=== PATIENT | male | born 1955 | race Caucasian/White ===

== ENCOUNTER 2019-08-15 19:25 | Inpatient (IN) | payer MEDICAID ==
[~2019-08-15] VITALS: Ht 170.2 cm; Wt 86.2 kg
[~2019-08-15 19:25] MED LIST: ALBU8HFA4 IH; ASPI-728 PO; DIVA250T60 PO; GABA-533 PO; GLYB5 PO; INSLAN SQ; LOSA-88 PO; METF-960 PO; OXCA300T28 PO; Quetiapine Fumarate PO; SIMV-261 PO
[2019-08-15] MEDS ORDERED: LORazepam 2 MG TABLET PO PRN (21:15)
[2019-08-15] MEDS ORDERED: HALOPERIDOL 5 MG TABLET PO PRN (21:15)
[2019-08-15] MEDS ORDERED: INFLUENZA VIRUS VACCINE QVS 2019-20 (3YR+)/PF 60 MCG/0.5 ML SYRINGE IM ONE (22:00)
[2019-08-16 00:18] VITALS: BP 135/67
[2019-08-16] MEDS: ZOLPIDEM TARTRATE 10 MG TABLET PO PRN (00:32)
[2019-08-16 06:19] LABS: GLUCOMETER DEV NAME(LOC) BV2S.; GLUCOSE,POINT OF CARE 405 MG/DL (70-110)
[2019-08-16] MEDS ORDERED: INSULIN LISPRO 100 UNITS/ML SQ ONE ×3 (07:30→18:00)
[2019-08-16] MEDS ORDERED: GLUCAGON,HUMAN RECOMBINANT 1 MG VIAL IM PRN (07:30)
[2019-08-16 08:38] LABS: BASOPHILS % (AUTO) 0.8 % (0.0-2.0); HEMOGLOBIN 13.8 g/dL (13.5-17.5); LYMPHOCYTES % (AUTO) 38.4 % (22.0-44.0); MEAN CORPUSCULAR HEMOGLOBIN 28.9 pg (26.0-34.0); MEAN CORPUSCULAR HGB CONC 33.7 G/dL (31.0-37.0); MEAN CORPUSCULAR VOLUME 86 fL (80-100); MONOCYTES # (AUTO) 0.4 K/uL (0.1-1.0); MONOCYTES % (AUTO) 8.4 % (2.0-9.0); NEUTROPHILS # (AUTO) 2.6 K/uL (1.8-7.7); NEUTROPHILS % (AUTO) 49.4 % (40.0-70.0); PLATELET COUNT (AUTO) 142 K/uL (150-450); RED BLOOD CELL COUNT(AUTO) 4.79 MIL/uL (4.50-5.90); RED CELL DISTRIBUTION WIDTH 13.1 % (11.5-14.5)
[2019-08-16 08:52] VITALS: BP 136/70
[2019-08-16] MEDS ORDERED: INSULIN GLARGINE,HUM.REC.ANLOG 100 UNITS/ML SQ SCH ×2 (09:00→17:00)
[2019-08-16 09:10] LABS: HEMOGLOBIN A1C 12.9 % (4.5-6.2)
[2019-08-16 09:27] LABS: ALANINE AMINOTRANSFERASE 26 U/L (12-78); ALBUMIN 2.9 g/dL (3.4-5.0); ALKALINE PHOSPHATASE 61 U/L (46-116); ANION GAP 4 mmol/L (8-16); ASPARTATE AMINOTRANSFERASE 10 U/L (15-37); BILIRUBIN,TOTAL 0.2 mg/dL (0.1-1.0); CALCIUM, TOTAL 8.7 mg/dL (8.8-10.5); CARBON DIOXIDE 31 mmol/L (22-29); CHLORIDE 101 mmol/L (98-107); CHOL/HDL RATIO 4.4 (4.2-7.3); CHOLESTEROL 111 mg/dL (131-200); CREATININE 0.99 mg/dL (0.60-1.30); FREE T4 (FREE THYROXINE) 0.95 ng/dL (0.76-1.46); GLOMERULAR FILTR. RATE CALC > 60 mL/min (>60); HDL CHOLESTEROL 25 mg/dL (40-60); LDL CHOL (CALC.) 37 mg/dL (0-130); POTASSIUM 4.2 mmol/L (3.5-5.1); SODIUM SERUM 136 mmol/L (136-145); THYROID STIMULATING HORMONE 2.47 uIU/mL (0.36-3.74); TOTAL PROTEIN, SERUM 5.7 g/dL (6.4-8.2); TRIGLYCERIDES 246 mg/dL (15-150); UREA NITROGEN, BLOOD 28 mg/dL (7-18)
[2019-08-16 09:32] LABS: GLUCOSE,RANDOM 402 mg/dL (70-110)
[2019-08-16 11:11] LABS: GLUCOMETER DEV NAME(LOC) BV2S.; GLUCOSE,POINT OF CARE 425 MG/DL (70-110)
[2019-08-16] MEDS ORDERED: INSULIN GLARGINE,HUM.REC.ANLOG 100 UNITS/ML SQ ONE (12:30)
[2019-08-16] MEDS: ESCITALOPRAM OXALATE 10 MG TABLET PO SCH (13:26)
[2019-08-16] MEDS ORDERED: MAG HYDROX/AL HYDROX/SIMETH ES 30 ML SUSPENSION UDCUP PO PRN (15:15)
[2019-08-16] MEDS ORDERED: GuaiFENesin/D-METHORPHAN [SUGAR-FREE] 200-20MG/10 ML SYRUP UDCUP PO PRN (15:15)
[2019-08-16] MEDS ORDERED: ONDANSETRON HCL 4 MG TABLET PO PRN (15:15)
[2019-08-16] MEDS ORDERED: LOPERAMIDE HCL 2 MG CAPSULE PO PRN (15:15)
[2019-08-16] MEDS ORDERED: IBUPROFEN 400 MG TABLET PO PRN (15:15)
[2019-08-16] MEDS ORDERED: CloNIDine HCL 0.1 MG TABLET PO PRN (15:15)
[2019-08-16] MEDS ORDERED: ALBUTEROL SULFATE HFA 90 MCG/PUFF 8 GM INHALER IH PRN (15:15)
[2019-08-16] MEDS ORDERED: MAGNESIUM HYDROXIDE SUSPENSION 30 ML UDCUP PO PRN (15:15)
[2019-08-16] MEDS ORDERED: DOCUSATE SODIUM 100 MG CAPSULE PO PRN (15:15)
[2019-08-16] MEDS ORDERED: PETROLATUM,WHITE 28 GM JELLY TP PRN (15:15)
[2019-08-16] MEDS ORDERED: ACETAMINOPHEN 325 MG TABLET PO PRN (15:15)
[2019-08-16] MEDS ORDERED: NICOTINE 14 MG/24 HOUR PATCH TD PRN (15:15)
[2019-08-16 16:22] VITALS: BP 141/72
[2019-08-16] MEDS: GABAPENTIN 400 MG CAPSULE PO SCH ×2 (16:58→21:14)
[2019-08-16] MEDS: DIVALPROEX SODIUM 250 MG DR TABLET PO SCH (16:59)
[2019-08-16] MEDS ORDERED: DIVALPROEX SODIUM 250 MG ER TABLET PO SCH (17:00)
[2019-08-16] MEDS ORDERED: MetFORMIN HCL 500 MG TABLET PO SCH (17:00)
[2019-08-16] MEDS: MetFORMIN HCL 500 MG TABLET PO SCH (17:00)
[2019-08-16] MEDS: INSULIN GLARGINE,HUM.REC.ANLOG 100 UNITS/ML SQ SCH (18:05)
[2019-08-16 20:58] LABS: GLUCOMETER DEV NAME(LOC) BV2S.; GLUCOSE,POINT OF CARE 348 MG/DL (70-110)
[2019-08-16 20:58] LABS: GLUCOMETER DEV NAME(LOC) BV2S.; GLUCOSE,POINT OF CARE 423 MG/DL (70-110)
[2019-08-16] MEDS: OXcarbazepine 300 MG TABLET PO SCH (21:13)
[2019-08-16] MEDS: GlyBURIDE 5 MG TABLET PO SCH (22:10)
[2019-08-16] MEDS: SIMVASTATIN 40 MG TABLET PO SCH (22:36)
[2019-08-16] MEDS: INSULIN LISPRO 100 UNITS/ML SQ PRN (22:37)
[2019-08-17 00:26] VITALS: BP 120/62
[2019-08-17 06:28] LABS: GLUCOMETER DEV NAME(LOC) BV2S.; GLUCOSE,POINT OF CARE 224 MG/DL (70-110)
[2019-08-17] MEDS: INSULIN LISPRO 100 UNITS/ML SQ PRN ×4 (06:46→20:50)
[2019-08-17] MEDS: GlyBURIDE 5 MG TABLET PO SCH ×2 (06:59→16:54)
[2019-08-17] MEDS: MetFORMIN HCL 500 MG TABLET PO SCH ×3 (07:00→17:00)
[2019-08-17 08:35] VITALS: BP 142/67
[2019-08-17] MEDS: LOSARTAN POTASSIUM 50 MG TABLET PO SCH (09:39)
[2019-08-17] MEDS: DIVALPROEX SODIUM 250 MG DR TABLET PO SCH ×2 (09:39→16:40)
[2019-08-17] MEDS: ASPIRIN 81 MG CHEWABLE TABLET PO SCH (09:39)
[2019-08-17] MEDS: ESCITALOPRAM OXALATE 10 MG TABLET PO SCH (09:39)
[2019-08-17] MEDS: GABAPENTIN 400 MG CAPSULE PO SCH ×4 (09:39→20:45)
[2019-08-17] MEDS: INSULIN GLARGINE,HUM.REC.ANLOG 100 UNITS/ML SQ SCH ×2 (09:47→16:48)
[2019-08-17 09:58] LABS: GLUCOMETER DEV NAME(LOC) BV2S.; GLUCOSE,POINT OF CARE 366 MG/DL (70-110)
[2019-08-17 11:38] LABS: GLUCOMETER DEV NAME(LOC) BV2S.; GLUCOSE,POINT OF CARE 361 MG/DL (70-110)
[2019-08-17 16:03] LABS: GLUCOMETER DEV NAME(LOC) BV2S.; GLUCOSE,POINT OF CARE 312 MG/DL (70-110)
[2019-08-17 16:17] VITALS: BP 131/71
[2019-08-17] MEDS: SIMVASTATIN 40 MG TABLET PO SCH (20:46)
[2019-08-17] MEDS: OXcarbazepine 300 MG TABLET PO SCH (20:46)
[2019-08-17 21:02] LABS: GLUCOMETER DEV NAME(LOC) BV2S.; GLUCOSE,POINT OF CARE 331 MG/DL (70-110)
[2019-08-18 00:26] VITALS: BP 136/81
[2019-08-18] MEDS: ZOLPIDEM TARTRATE 10 MG TABLET PO PRN (00:26)
[2019-08-18 01:16] VITALS: BP 138/83
[2019-08-18 06:18] LABS: GLUCOMETER DEV NAME(LOC) BV2S.; GLUCOSE,POINT OF CARE 236 MG/DL (70-110)
[2019-08-18] MEDS: GlyBURIDE 5 MG TABLET PO SCH ×2 (06:27→16:36)
[2019-08-18] MEDS: INSULIN LISPRO 100 UNITS/ML SQ PRN ×4 (06:32→21:29)
[2019-08-18 09:34] VITALS: BP 106/66
[2019-08-18] MEDS: DIVALPROEX SODIUM 250 MG DR TABLET PO SCH ×2 (10:11→16:36)
[2019-08-18] MEDS: LOSARTAN POTASSIUM 50 MG TABLET PO SCH (10:11)
[2019-08-18] MEDS: ASPIRIN 81 MG CHEWABLE TABLET PO SCH (10:12)
[2019-08-18] MEDS: ESCITALOPRAM OXALATE 10 MG TABLET PO SCH (10:12)
[2019-08-18] MEDS: GABAPENTIN 400 MG CAPSULE PO SCH ×4 (10:13→20:33)
[2019-08-18] MEDS: INSULIN GLARGINE,HUM.REC.ANLOG 100 UNITS/ML SQ SCH ×2 (10:28→17:32)
[2019-08-18 12:29] LABS: GLUCOMETER DEV NAME(LOC) BV2S.; GLUCOSE,POINT OF CARE 319 MG/DL (70-110)
[2019-08-18] MEDS: MetFORMIN HCL 500 MG TABLET PO SCH (16:36)
[2019-08-18 16:43] VITALS: BP 125/70
[2019-08-18 17:11] LABS: GLUCOMETER DEV NAME(LOC) BV2S.; GLUCOSE,POINT OF CARE 369 MG/DL (70-110)
[2019-08-18] MEDS: SIMVASTATIN 40 MG TABLET PO SCH (20:33)
[2019-08-18] MEDS: OXcarbazepine 300 MG TABLET PO SCH (20:33)
[2019-08-18 21:10] LABS: GLUCOMETER DEV NAME(LOC) BV2S.; GLUCOSE,POINT OF CARE 350 MG/DL (70-110)
[2019-08-19 01:28] VITALS: BP 122/70
[2019-08-19 06:54] LABS: GLUCOMETER DEV NAME(LOC) BV2S.; GLUCOSE,POINT OF CARE 153 MG/DL (70-110)
[2019-08-19] MEDS: INSULIN LISPRO 100 UNITS/ML SQ PRN ×4 (07:01→21:02)
[2019-08-19] MEDS: MetFORMIN HCL 500 MG TABLET PO SCH ×2 (07:02→16:24)
[2019-08-19] MEDS: GlyBURIDE 5 MG TABLET PO SCH ×2 (07:02→16:25)
[2019-08-19] MEDS: ESCITALOPRAM OXALATE 10 MG TABLET PO SCH (08:19)
[2019-08-19] MEDS: GABAPENTIN 400 MG CAPSULE PO SCH ×4 (08:19→20:21)
[2019-08-19] MEDS: ASPIRIN 81 MG CHEWABLE TABLET PO SCH (08:19)
[2019-08-19] MEDS: LOSARTAN POTASSIUM 50 MG TABLET PO SCH (08:20)
[2019-08-19] MEDS: DIVALPROEX SODIUM 250 MG DR TABLET PO SCH ×2 (08:20→16:25)
[2019-08-19] MEDS: INSULIN GLARGINE,HUM.REC.ANLOG 100 UNITS/ML SQ SCH ×2 (09:10→17:09)
[2019-08-19 09:23] VITALS: BP 140/79
[2019-08-19 11:13] LABS: GLUCOMETER DEV NAME(LOC) BV2S.; GLUCOSE,POINT OF CARE 314 MG/DL (70-110)
[2019-08-19 16:35] VITALS: BP 127/74
[2019-08-19 17:07] LABS: GLUCOMETER DEV NAME(LOC) BV2S.; GLUCOSE,POINT OF CARE 251 MG/DL (70-110)
[2019-08-19] MEDS: OXcarbazepine 300 MG TABLET PO SCH (20:21)
[2019-08-19] MEDS: SIMVASTATIN 40 MG TABLET PO SCH (20:22)
[2019-08-19] MEDS: ZOLPIDEM TARTRATE 10 MG TABLET PO PRN (20:38)
[2019-08-19 21:08] LABS: GLUCOMETER DEV NAME(LOC) BV2S.; GLUCOSE,POINT OF CARE 337 MG/DL (70-110)
[2019-08-20] MEDS: INSULIN LISPRO 100 UNITS/ML SQ PRN ×4 (07:07→21:42)
[2019-08-20] MEDS: GlyBURIDE 5 MG TABLET PO SCH ×2 (07:08→16:13)
[2019-08-20 07:30] LABS: GLUCOMETER DEV NAME(LOC) BV2S.; GLUCOSE,POINT OF CARE 220 MG/DL (70-110)
[2019-08-20] MEDS: ESCITALOPRAM OXALATE 10 MG TABLET PO SCH (08:23)
[2019-08-20] MEDS: LOSARTAN POTASSIUM 50 MG TABLET PO SCH (08:24)
[2019-08-20] MEDS: GABAPENTIN 400 MG CAPSULE PO SCH ×4 (08:24→20:25)
[2019-08-20] MEDS: DIVALPROEX SODIUM 250 MG DR TABLET PO SCH (08:24)
[2019-08-20] MEDS: ASPIRIN 81 MG CHEWABLE TABLET PO SCH (08:25)
[2019-08-20] MEDS: INSULIN GLARGINE,HUM.REC.ANLOG 100 UNITS/ML SQ SCH ×2 (08:30→18:39)
[2019-08-20 09:17] VITALS: BP 124/74
[2019-08-20 11:30] LABS: GLUCOMETER DEV NAME(LOC) BV2S.; GLUCOSE,POINT OF CARE 258 MG/DL (70-110)
[2019-08-20] MEDS: DIVALPROEX SODIUM 500 MG DR TABLET PO SCH (16:13)
[2019-08-20 16:27] VITALS: BP 118/85
[2019-08-20 17:17] LABS: GLUCOMETER DEV NAME(LOC) BV2S.; GLUCOSE,POINT OF CARE 277 MG/DL (70-110)
[2019-08-20] MEDS: OXcarbazepine 300 MG TABLET PO SCH (20:25)
[2019-08-20] MEDS: SIMVASTATIN 40 MG TABLET PO SCH (20:27)
[2019-08-20] MEDS: ZOLPIDEM TARTRATE 10 MG TABLET PO PRN (21:12)
[2019-08-20 21:26] LABS: GLUCOMETER DEV NAME(LOC) BV2S.; GLUCOSE,POINT OF CARE 300 MG/DL (70-110)
[2019-08-21 02:25] VITALS: BP 140/97
[2019-08-21 06:32] LABS: GLUCOMETER DEV NAME(LOC) BV2S.; GLUCOSE,POINT OF CARE 238 MG/DL (70-110)
[2019-08-21] MEDS: GlyBURIDE 5 MG TABLET PO SCH (07:01)
[2019-08-21] MEDS: INSULIN LISPRO 100 UNITS/ML SQ PRN ×2 (07:02→10:56)
[2019-08-21 08:52] VITALS: BP 123/89
[2019-08-21] MEDS: ESCITALOPRAM OXALATE 10 MG TABLET PO SCH (09:03)
[2019-08-21] MEDS: GABAPENTIN 400 MG CAPSULE PO SCH ×2 (09:03→12:22)
[2019-08-21] MEDS: LOSARTAN POTASSIUM 50 MG TABLET PO SCH (09:04)
[2019-08-21] MEDS: ASPIRIN 81 MG CHEWABLE TABLET PO SCH (09:04)
[2019-08-21] MEDS: DIVALPROEX SODIUM 500 MG DR TABLET PO SCH (09:04)
[2019-08-21] MEDS: INSULIN GLARGINE,HUM.REC.ANLOG 100 UNITS/ML SQ SCH (09:06)
[2019-08-21 09:14] LABS: GLUCOMETER DEV NAME(LOC) BV2S.; GLUCOSE,POINT OF CARE 399 MG/DL (70-110)
[2019-08-21 11:03] LABS: GLUCOMETER DEV NAME(LOC) BV2S.; GLUCOSE,POINT OF CARE 285 MG/DL (70-110)
[2019-08-21] MEDS ORDERED: DIVA125T32 PO (11:04)
[2019-08-21] MEDS ORDERED: DIVA-76 PO (11:08)
[2019-08-21] MEDS ORDERED: INSLAN SQ (11:10)
[2019-08-21] MEDS ORDERED: ESCI20TA PO (11:12)
== END 2019-08-21 13:35 | disposition home or self-care (01) | DRG 754 ==
LOC: B2S 21:08
PROVIDERS: ADMIT Psychiatry & Neurology Psychiatry; ATTEND Psychiatry & Neurology Psychiatry
DX: F32.9 Major depressive disorder, single episode, unspecified (principal); R45.850 Homicidal ideations; R45.851 Suicidal ideations; E11.9 Type 2 diabetes mellitus without complications; E78.5 Hyperlipidemia, unspecified; F10.10 Alcohol abuse, uncomplicated; F41.9 Anxiety disorder, unspecified; G40.909 Epilepsy, unspecified, not intractable, without status epilepticus; I10 Essential (primary) hypertension; J44.9 Chronic obstructive pulmonary disease, unspecified; G47.33 Obstructive sleep apnea (adult) (pediatric); G89.29 Other chronic pain; Z59.0 Homelessness; Z91.14 Patient's other noncompliance with medication regimen
CPT/HCPCS: 83036; 84439; 84443; 90686; J1815

== ENCOUNTER 2020-01-01 07:27 | Inpatient (IN) | payer MEDICAID ==
[~2020-01-01] VITALS: Ht 167.6 cm; Wt 84.5 kg
[~2020-01-01 07:27] MED LIST changes: -ALBU8HFA4 IH; +DIVA-111 PO; -DIVA250T60 PO; +ESCI20TA87 PO; +GABA-1201 PO; -GABA-533 PO; -LOSA-88 PO; +LOSA50TA37 PO; -METF-960 PO; -Quetiapine Fumarate PO
[2020-01-01 13:19] VITALS: BP 111/90
[2020-01-01] MEDS ORDERED: DEXTROSE 50%-WATER 25 GM/50 ML SYRINGE IVP PRN (13:30)
[2020-01-01] MEDS ORDERED: HALOPERIDOL 5 MG TABLET PO PRN (13:30)
[2020-01-01] MEDS ORDERED: LOPERAMIDE HCL 2 MG CAPSULE PO PRN (14:00)
[2020-01-01] MEDS ORDERED: CloNIDine HCL 0.1 MG TABLET PO PRN (14:00)
[2020-01-01] MEDS ORDERED: MAGNESIUM HYDROXIDE SUSPENSION 30 ML UDCUP PO PRN (14:00)
[2020-01-01] MEDS ORDERED: MAG HYDROX/AL HYDROX/SIMETH ES 30 ML SUSPENSION UDCUP PO PRN (14:00)
[2020-01-01] MEDS ORDERED: DOCUSATE SODIUM 100 MG CAPSULE PO PRN (14:00)
[2020-01-01] MEDS ORDERED: ALBUTEROL SULFATE HFA 90 MCG/PUFF 8 GM INHALER IH PRN (14:00)
[2020-01-01] MEDS ORDERED: ONDANSETRON HCL 4 MG TABLET PO PRN (14:00)
[2020-01-01] MEDS ORDERED: PETROLATUM,WHITE 28 GM JELLY TP PRN (14:00)
[2020-01-01] MEDS ORDERED: ACETAMINOPHEN 325 MG TABLET PO PRN (14:00)
[2020-01-01] MEDS ORDERED: NICOTINE 14 MG/24 HOUR PATCH TD PRN (14:00)
[2020-01-01] MEDS ORDERED: GuaiFENesin/D-METHORPHAN [SUGAR-FREE] 200-20MG/10 ML SYRUP UDCUP PO PRN (14:00)
[2020-01-01 16:20] VITALS: BP 138/68
[2020-01-01] MEDS: DIVALPROEX SODIUM 500 MG DR TABLET PO SCH (16:39)
[2020-01-01] MEDS: GABAPENTIN 400 MG CAPSULE PO SCH ×2 (16:39→20:10)
[2020-01-01 16:51] LABS: APPEARANCE,URINE CLEAR (CLEAR); GLUCOSE, URINE (UA) >=1000 mg/dL (NEGATIVE); KETONES,URINE 40 mg/dL (NEGATIVE); LEUKOCYTE ESTERASE ,URINE NEGATIVE (NEGATIVE); NITRATE,URINE NEGATIVE (NEGATIVE); OCCULT BLOOD,URINE NEGATIVE (NEGATIVE); PROTEIN,URINE NEGATIVE (NEGATIVE)
[2020-01-01] MEDS: INSULIN GLARGINE,HUM.REC.ANLOG 100 UNITS/ML SQ SCH (16:51)
[2020-01-01] MEDS: INSULIN LISPRO 100 UNITS/ML SQ PRN ×2 (16:52→20:28)
[2020-01-01 16:54] LABS: BILIRUBIN,URINE PRELIM. POSITIVE (NEGATIVE)
[2020-01-01 16:58] LABS: BACTERIA,URINE None Seen /HPF (None Seen); RBC,URINE None Seen /HPF (0-2); WBC,URINE None Seen /HPF (0-5)
[2020-01-01 17:16] LABS: AMPHET/METH SCREEN,URINE POSITIVE (NEGATIVE); BARBITURATE SCREEN, URINE NEGATIVE (NEGATIVE); BENZODIAZEPINES SCREEN,URINE NEGATIVE (NEGATIVE); CANNABINOID SCREEN,URINE POSITIVE (NEGATIVE); COCAINE SCREEN,URINE NEGATIVE (NEGATIVE); METHADONE SCREEN, URINE NEGATIVE (NEGATIVE); OPIATE SCREEN,URINE NEGATIVE (NEGATIVE)
[2020-01-01 17:17] LABS: PHENCYCLIDINE SCREEN,URINE NEGATIVE (NEGATIVE)
[2020-01-01] MEDS: GlyBURIDE 5 MG TABLET PO SCH (17:30)
[2020-01-01] MEDS: OXcarbazepine 300 MG TABLET PO SCH (20:10)
[2020-01-01] MEDS: SIMVASTATIN 40 MG TABLET PO SCH (20:10)
[2020-01-02 04:47] LABS: GLUCOMETER DEV NAME(LOC) 3E.C; GLUCOSE,POINT OF CARE 158 MG/DL (70-110)
[2020-01-02] MEDS: GlyBURIDE 5 MG TABLET PO SCH ×2 (06:54→17:30)
[2020-01-02] MEDS: INSULIN LISPRO 100 UNITS/ML SQ PRN ×4 (06:55→20:31)
[2020-01-02] MEDS: LOSARTAN POTASSIUM 50 MG TABLET PO SCH (07:50)
[2020-01-02] MEDS: GABAPENTIN 400 MG CAPSULE PO SCH ×4 (07:50→20:28)
[2020-01-02] MEDS: DIVALPROEX SODIUM 500 MG DR TABLET PO SCH ×2 (07:50→16:36)
[2020-01-02] MEDS: ASPIRIN 81 MG EC TABLET PO SCH (07:50)
[2020-01-02] MEDS: INSULIN GLARGINE,HUM.REC.ANLOG 100 UNITS/ML SQ SCH ×2 (07:59→16:51)
[2020-01-02 09:05] LABS: BASOPHILS % (AUTO) 0.9 % (0.0-2.0); EOSINOPHILS % (AUTO) 3.9 % (1.0-6.0); HEMATOCRIT 41.4 % (41-53); HEMOGLOBIN 13.9 g/dL (13.5-17.5); LYMPHOCYTES # (AUTO) 1.5 K/uL (1.0-4.8); LYMPHOCYTES % (AUTO) 26.3 % (22.0-44.0); MEAN CORPUSCULAR HEMOGLOBIN 29.4 pg (26.0-34.0); MEAN CORPUSCULAR HGB CONC 33.5 G/dL (31.0-37.0); MEAN CORPUSCULAR VOLUME 88 fL (80-100); MONOCYTES # (AUTO) 0.5 K/uL (0.1-1.0); MONOCYTES % (AUTO) 8.5 % (2.0-9.0); NEUTROPHILS # (AUTO) 3.4 K/uL (1.8-7.7); NEUTROPHILS % (AUTO) 60.4 % (40.0-70.0); PLATELET COUNT (AUTO) 157 K/uL (150-450); RED BLOOD CELL COUNT(AUTO) 4.72 MIL/uL (4.50-5.90); RED CELL DISTRIBUTION WIDTH 14.8 % (11.5-14.5)
[2020-01-02 09:31] LABS: HEMOGLOBIN A1C 12.1 % (3.8-5.6)
[2020-01-02 09:49] LABS: ALANINE AMINOTRANSFERASE 23 U/L (12-78); ALBUMIN 3.2 g/dL (3.4-5.0); ALKALINE PHOSPHATASE 83 U/L (46-116); ANION GAP 8 mmol/L (8-16); ASPARTATE AMINOTRANSFERASE 14 U/L (15-37); BILIRUBIN,TOTAL 0.4 mg/dL (0.1-1.0); CALCIUM, TOTAL 8.4 mg/dL (8.8-10.5); CARBON DIOXIDE 29 mmol/L (22-29); CHLORIDE 103 mmol/L (98-107); CHOL/HDL RATIO 2.3 (4.2-7.3); CHOLESTEROL 95 mg/dL (131-200); CREATININE 1.19 mg/dL (0.60-1.30); GLOMERULAR FILTR. RATE CALC > 60 mL/min (>60); GLUCOSE,RANDOM 243 mg/dL (70-110); HDL CHOLESTEROL 41 mg/dL (40-60); LDL CHOL (CALC.) 44 mg/dL (0-130); POTASSIUM 4.2 mmol/L (3.5-5.1); SODIUM SERUM 140 mmol/L (136-145); THYROID STIMULATING HORMONE 1.54 uIU/mL (0.36-3.74); TOTAL PROTEIN, SERUM 6.6 g/dL (6.4-8.2); TRIGLYCERIDES 51 mg/dL (15-150); UREA NITROGEN, BLOOD 28 mg/dL (7-18)
[2020-01-02] MEDS: ESCITALOPRAM OXALATE 20 MG TABLET PO SCH (10:52)
[2020-01-02 13:03] LABS: GLUCOMETER DEV NAME(LOC) 3E.C; GLUCOSE,POINT OF CARE 158 MG/DL (70-110)
[2020-01-02 16:46] LABS: GLUCOMETER DEV NAME(LOC) 3E.C; GLUCOSE,POINT OF CARE 171 MG/DL (70-110)
[2020-01-02 17:03] VITALS: BP 126/73
[2020-01-02] MEDS: SIMVASTATIN 40 MG TABLET PO SCH (20:28)
[2020-01-02] MEDS: OXcarbazepine 300 MG TABLET PO SCH (20:28)
[2020-01-02] MEDS: QUEtiapine FUMARATE 200 MG TABLET PO SCH (20:34)
[2020-01-02 20:35] LABS: GLUCOMETER DEV NAME(LOC) 3E.C; GLUCOSE,POINT OF CARE 264 MG/DL (70-110)
[2020-01-03 06:49] LABS: GLUCOMETER DEV NAME(LOC) 3E.C; GLUCOSE,POINT OF CARE 150 MG/DL (70-110)
[2020-01-03] MEDS: GlyBURIDE 5 MG TABLET PO SCH ×2 (06:54→17:30)
[2020-01-03] MEDS: INSULIN LISPRO 100 UNITS/ML SQ PRN ×3 (06:55→20:53)
[2020-01-03] MEDS: LOSARTAN POTASSIUM 50 MG TABLET PO SCH (09:18)
[2020-01-03] MEDS: ESCITALOPRAM OXALATE 20 MG TABLET PO SCH (09:18)
[2020-01-03 09:20] VITALS: BP 128/82
[2020-01-03] MEDS: DIVALPROEX SODIUM 500 MG DR TABLET PO SCH ×2 (09:20→17:27)
[2020-01-03] MEDS: ASPIRIN 81 MG EC TABLET PO SCH (09:20)
[2020-01-03] MEDS: GABAPENTIN 400 MG CAPSULE PO SCH ×4 (09:20→20:24)
[2020-01-03] MEDS: INSULIN GLARGINE,HUM.REC.ANLOG 100 UNITS/ML SQ SCH ×2 (09:24→17:24)
[2020-01-03] MEDS: LORazepam 2 MG TABLET PO PRN ×2 (09:26→13:28)
[2020-01-03 12:29] LABS: GLUCOMETER DEV NAME(LOC) 3E.C; GLUCOSE,POINT OF CARE 147 MG/DL (70-110)
[2020-01-03 16:48] LABS: GLUCOMETER DEV NAME(LOC) 3E.C; GLUCOSE,POINT OF CARE 204 MG/DL (70-110)
[2020-01-03 18:02] VITALS: BP 132/81
[2020-01-03] MEDS: OXcarbazepine 300 MG TABLET PO SCH (20:23)
[2020-01-03] MEDS: QUEtiapine FUMARATE 200 MG TABLET PO SCH (20:24)
[2020-01-03] MEDS: SIMVASTATIN 40 MG TABLET PO SCH (20:24)
[2020-01-03 20:34] LABS: GLUCOMETER DEV NAME(LOC) 3E.C; GLUCOSE,POINT OF CARE 174 MG/DL (70-110)
[2020-01-04] MEDS: GlyBURIDE 5 MG TABLET PO SCH ×2 (06:44→17:31)
[2020-01-04 06:55] LABS: GLUCOMETER DEV NAME(LOC) 3E.C; GLUCOSE,POINT OF CARE 103 MG/DL (70-110)
[2020-01-04] MEDS: INSULIN GLARGINE,HUM.REC.ANLOG 100 UNITS/ML SQ SCH ×2 (08:11→16:53)
[2020-01-04] MEDS: LOSARTAN POTASSIUM 50 MG TABLET PO SCH (08:13)
[2020-01-04] MEDS: DIVALPROEX SODIUM 500 MG DR TABLET PO SCH ×2 (08:13→17:30)
[2020-01-04] MEDS: ASPIRIN 81 MG EC TABLET PO SCH (08:13)
[2020-01-04] MEDS: GABAPENTIN 400 MG CAPSULE PO SCH ×4 (08:13→20:45)
[2020-01-04] MEDS: ESCITALOPRAM OXALATE 20 MG TABLET PO SCH (08:13)
[2020-01-04 08:34] VITALS: BP 167/80
[2020-01-04] MEDS: IBUPROFEN 400 MG TABLET PO PRN (08:34)
[2020-01-04 12:05] LABS: GLUCOMETER DEV NAME(LOC) 3E.C; GLUCOSE,POINT OF CARE 156 MG/DL (70-110)
[2020-01-04 16:29] VITALS: BP 156/89
[2020-01-04 16:38] LABS: GLUCOMETER DEV NAME(LOC) 3E.C; GLUCOSE,POINT OF CARE 256 MG/DL (70-110)
[2020-01-04] MEDS: INSULIN LISPRO 100 UNITS/ML SQ PRN ×2 (16:54→20:49)
[2020-01-04] MEDS: OXcarbazepine 300 MG TABLET PO SCH (20:45)
[2020-01-04] MEDS: SIMVASTATIN 40 MG TABLET PO SCH (20:45)
[2020-01-04] MEDS: QUEtiapine FUMARATE 200 MG TABLET PO SCH (20:46)
[2020-01-04 20:55] LABS: GLUCOMETER DEV NAME(LOC) 3E.C; GLUCOSE,POINT OF CARE 247 MG/DL (70-110)
[2020-01-05 06:35] LABS: GLUCOMETER DEV NAME(LOC) 3E.C; GLUCOSE,POINT OF CARE 74 MG/DL (70-110)
[2020-01-05] MEDS: GlyBURIDE 5 MG TABLET PO SCH ×2 (06:38→17:33)
[2020-01-05 08:41] VITALS: BP 152/90
[2020-01-05] MEDS: GABAPENTIN 400 MG CAPSULE PO SCH ×4 (08:44→20:44)
[2020-01-05] MEDS: LOSARTAN POTASSIUM 50 MG TABLET PO SCH (08:44)
[2020-01-05] MEDS: ESCITALOPRAM OXALATE 20 MG TABLET PO SCH (08:44)
[2020-01-05] MEDS: DIVALPROEX SODIUM 500 MG DR TABLET PO SCH ×2 (08:44→17:33)
[2020-01-05] MEDS: ASPIRIN 81 MG EC TABLET PO SCH (08:44)
[2020-01-05] MEDS: LORazepam 2 MG TABLET PO PRN (09:02)
[2020-01-05] MEDS: INSULIN GLARGINE,HUM.REC.ANLOG 100 UNITS/ML SQ SCH ×2 (09:02→17:32)
[2020-01-05 09:10] LABS: GLUCOMETER DEV NAME(LOC) 3E.C; GLUCOSE,POINT OF CARE 198 MG/DL (70-110)
[2020-01-05] MEDS: INSULIN LISPRO 100 UNITS/ML SQ PRN ×2 (12:04→20:56)
[2020-01-05 12:17] LABS: GLUCOMETER DEV NAME(LOC) 3E.C; GLUCOSE,POINT OF CARE 218 MG/DL (70-110)
[2020-01-05] MEDS ORDERED: DIVA-112 PO (14:48)
[2020-01-05] MEDS: ARIPiprazole 10 MG TABLET PO SCH (14:52)
[2020-01-05 17:42] LABS: GLUCOMETER DEV NAME(LOC) 3E.I 2; GLUCOSE,POINT OF CARE 117 MG/DL (70-110)
[2020-01-05 18:35] VITALS: BP 145/92
[2020-01-05] MEDS: SIMVASTATIN 40 MG TABLET PO SCH (20:44)
[2020-01-05] MEDS: OXcarbazepine 300 MG TABLET PO SCH (20:44)
[2020-01-05 20:56] LABS: GLUCOMETER DEV NAME(LOC) 3E.C; GLUCOSE,POINT OF CARE 168 MG/DL (70-110)
[2020-01-06] MEDS: GlyBURIDE 5 MG TABLET PO SCH ×2 (06:43→16:43)
[2020-01-06 06:48] LABS: GLUCOMETER DEV NAME(LOC) 3E.C; GLUCOSE,POINT OF CARE 66 MG/DL (70-110)
[2020-01-06 06:48] LABS: GLUCOMETER DEV NAME(LOC) 3E.C; GLUCOSE,POINT OF CARE 87 MG/DL (70-110)
[2020-01-06] MEDS: ARIPiprazole 10 MG TABLET PO SCH (08:24)
[2020-01-06] MEDS: DIVALPROEX SODIUM 500 MG DR TABLET PO SCH ×2 (08:24→16:29)
[2020-01-06] MEDS: ASPIRIN 81 MG EC TABLET PO SCH (08:24)
[2020-01-06] MEDS: GABAPENTIN 400 MG CAPSULE PO SCH ×4 (08:24→20:27)
[2020-01-06] MEDS: LOSARTAN POTASSIUM 50 MG TABLET PO SCH (08:24)
[2020-01-06] MEDS: ESCITALOPRAM OXALATE 20 MG TABLET PO SCH (08:25)
[2020-01-06] MEDS: INSULIN GLARGINE,HUM.REC.ANLOG 100 UNITS/ML SQ SCH ×2 (08:31→16:37)
[2020-01-06 08:49] LABS: GLUCOMETER DEV NAME(LOC) 3E.C; GLUCOSE,POINT OF CARE 240 MG/DL (70-110)
[2020-01-06 09:12] VITALS: BP 140/90
[2020-01-06 11:26] LABS: GLUCOMETER DEV NAME(LOC) 3E.C; GLUCOSE,POINT OF CARE 210 MG/DL (70-110)
[2020-01-06] MEDS: INSULIN LISPRO 100 UNITS/ML SQ PRN ×2 (12:04→17:23)
[2020-01-06 17:03] VITALS: BP 142/91
[2020-01-06 17:09] LABS: GLUCOMETER DEV NAME(LOC) 3E.C; GLUCOSE,POINT OF CARE 143 MG/DL (70-110)
[2020-01-06] MEDS: OXcarbazepine 300 MG TABLET PO SCH (20:27)
[2020-01-06] MEDS: SIMVASTATIN 40 MG TABLET PO SCH (20:27)
[2020-01-07 00:35] VITALS: BP 145/92
[2020-01-07] MEDS: LORazepam 2 MG TABLET PO PRN (00:35)
[2020-01-07 06:31] LABS: GLUCOMETER DEV NAME(LOC) 3E.C; GLUCOSE,POINT OF CARE 75 MG/DL (70-110)
[2020-01-07] MEDS: GlyBURIDE 5 MG TABLET PO SCH ×2 (07:01→16:48)
[2020-01-07] MEDS: INSULIN LISPRO 100 UNITS/ML SQ PRN ×4 (07:01→21:06)
[2020-01-07] MEDS: DIVALPROEX SODIUM 500 MG DR TABLET PO SCH ×2 (08:47→16:48)
[2020-01-07] MEDS: ARIPiprazole 10 MG TABLET PO SCH (08:47)
[2020-01-07] MEDS: ASPIRIN 81 MG EC TABLET PO SCH (08:47)
[2020-01-07] MEDS: GABAPENTIN 400 MG CAPSULE PO SCH ×4 (08:47→20:44)
[2020-01-07] MEDS: LOSARTAN POTASSIUM 50 MG TABLET PO SCH (08:48)
[2020-01-07] MEDS: ESCITALOPRAM OXALATE 20 MG TABLET PO SCH (08:48)
[2020-01-07] MEDS: INSULIN GLARGINE,HUM.REC.ANLOG 100 UNITS/ML SQ SCH ×2 (08:58→17:34)
[2020-01-07 10:38] VITALS: BP 136/78
[2020-01-07 11:17] LABS: GLUCOMETER DEV NAME(LOC) 3E.C; GLUCOSE,POINT OF CARE 202 MG/DL (70-110)
[2020-01-07 16:50] LABS: GLUCOMETER DEV NAME(LOC) 3E.C; GLUCOSE,POINT OF CARE 170 MG/DL (70-110)
[2020-01-07 16:59] VITALS: BP 117/84
[2020-01-07 20:29] LABS: GLUCOMETER DEV NAME(LOC) 3E.C; GLUCOSE,POINT OF CARE 262 MG/DL (70-110)
[2020-01-07] MEDS: SIMVASTATIN 40 MG TABLET PO SCH (20:44)
[2020-01-07] MEDS: OXcarbazepine 300 MG TABLET PO SCH (20:44)
[2020-01-08 04:35] VITALS: BP 158/87
[2020-01-08] MEDS: IBUPROFEN 400 MG TABLET PO PRN (04:40)
[2020-01-08 04:48] LABS: GLUCOMETER DEV NAME(LOC) 3E.C; GLUCOSE,POINT OF CARE 124 MG/DL (70-110)
[2020-01-08] MEDS: INSULIN LISPRO 100 UNITS/ML SQ PRN ×4 (06:38→20:35)
[2020-01-08] MEDS: GlyBURIDE 5 MG TABLET PO SCH ×2 (07:02→17:24)
[2020-01-08 08:26] VITALS: BP 163/89
[2020-01-08] MEDS: LOSARTAN POTASSIUM 50 MG TABLET PO SCH (08:34)
[2020-01-08] MEDS: ASPIRIN 81 MG EC TABLET PO SCH (08:34)
[2020-01-08] MEDS: GABAPENTIN 400 MG CAPSULE PO SCH ×4 (08:34→20:38)
[2020-01-08] MEDS: DIVALPROEX SODIUM 500 MG DR TABLET PO SCH ×2 (08:34→16:00)
[2020-01-08] MEDS: ESCITALOPRAM OXALATE 20 MG TABLET PO SCH (08:34)
[2020-01-08] MEDS: ARIPiprazole 10 MG TABLET PO SCH (08:34)
[2020-01-08] MEDS: INSULIN GLARGINE,HUM.REC.ANLOG 100 UNITS/ML SQ SCH ×2 (08:36→17:10)
[2020-01-08 11:30] LABS: GLUCOMETER DEV NAME(LOC) 3E.C; GLUCOSE,POINT OF CARE 278 MG/DL (70-110)
[2020-01-08 16:11] LABS: GLUCOMETER DEV NAME(LOC) 3E.C; GLUCOSE,POINT OF CARE 269 MG/DL (70-110)
[2020-01-08 16:29] VITALS: BP 140/85
[2020-01-08] MEDS: SIMVASTATIN 40 MG TABLET PO SCH (20:38)
[2020-01-08] MEDS: OXcarbazepine 300 MG TABLET PO SCH (20:38)
[2020-01-08 20:48] LABS: GLUCOMETER DEV NAME(LOC) 3E.C; GLUCOSE,POINT OF CARE 283 MG/DL (70-110)
[2020-01-09] MEDS: GlyBURIDE 5 MG TABLET PO SCH ×2 (07:03→16:45)
[2020-01-09 07:13] LABS: GLUCOMETER DEV NAME(LOC) 3E.C; GLUCOSE,POINT OF CARE 119 MG/DL (70-110)
[2020-01-09] MEDS: ARIPiprazole 10 MG TABLET PO SCH (08:00)
[2020-01-09] MEDS: DIVALPROEX SODIUM 500 MG DR TABLET PO SCH ×2 (08:00→16:45)
[2020-01-09] MEDS: GABAPENTIN 400 MG CAPSULE PO SCH ×4 (08:00→20:52)
[2020-01-09] MEDS: ESCITALOPRAM OXALATE 20 MG TABLET PO SCH (08:00)
[2020-01-09] MEDS: LOSARTAN POTASSIUM 50 MG TABLET PO SCH (08:00)
[2020-01-09 08:01] VITALS: BP 136/82
[2020-01-09] MEDS: ASPIRIN 81 MG EC TABLET PO SCH (08:01)
[2020-01-09] MEDS: IBUPROFEN 400 MG TABLET PO PRN (08:01)
[2020-01-09] MEDS: INSULIN GLARGINE,HUM.REC.ANLOG 100 UNITS/ML SQ SCH ×2 (09:24→16:41)
[2020-01-09 10:23] VITALS: BP 136/82
[2020-01-09 11:21] LABS: GLUCOMETER DEV NAME(LOC) 3E.C; GLUCOSE,POINT OF CARE 211 MG/DL (70-110)
[2020-01-09] MEDS: INSULIN LISPRO 100 UNITS/ML SQ PRN ×3 (11:54→20:57)
[2020-01-09 16:41] LABS: GLUCOMETER DEV NAME(LOC) 3E.C; GLUCOSE,POINT OF CARE 247 MG/DL (70-110)
[2020-01-09 16:55] VITALS: BP 142/90
[2020-01-09] MEDS: SIMVASTATIN 40 MG TABLET PO SCH (20:52)
[2020-01-09] MEDS: OXcarbazepine 300 MG TABLET PO SCH (20:52)
[2020-01-09 23:44] LABS: GLUCOMETER DEV NAME(LOC) 3E.C; GLUCOSE,POINT OF CARE 167 MG/DL (70-110)
[2020-01-10 04:38] VITALS: BP 123/74
[2020-01-10 04:42] LABS: GLUCOMETER DEV NAME(LOC) 3E.C; GLUCOSE,POINT OF CARE 67 MG/DL (70-110)
[2020-01-10 06:30] LABS: GLUCOMETER DEV NAME(LOC) 3E.C; GLUCOSE,POINT OF CARE 127 MG/DL (70-110)
[2020-01-10] MEDS: INSULIN LISPRO 100 UNITS/ML SQ PRN ×4 (06:32→21:52)
[2020-01-10] MEDS: GlyBURIDE 5 MG TABLET PO SCH ×2 (06:57→17:12)
[2020-01-10] MEDS: LOSARTAN POTASSIUM 50 MG TABLET PO SCH (08:40)
[2020-01-10] MEDS: ASPIRIN 81 MG EC TABLET PO SCH (08:40)
[2020-01-10] MEDS: GABAPENTIN 400 MG CAPSULE PO SCH ×4 (08:40→21:08)
[2020-01-10] MEDS: ARIPiprazole 10 MG TABLET PO SCH (08:40)
[2020-01-10] MEDS: ESCITALOPRAM OXALATE 20 MG TABLET PO SCH (08:40)
[2020-01-10] MEDS: DIVALPROEX SODIUM 500 MG DR TABLET PO SCH ×2 (08:40→17:12)
[2020-01-10 08:47] VITALS: BP 132/80
[2020-01-10] MEDS: INSULIN GLARGINE,HUM.REC.ANLOG 100 UNITS/ML SQ SCH ×2 (08:52→17:28)
[2020-01-10 11:29] LABS: GLUCOMETER DEV NAME(LOC) 3E.C; GLUCOSE,POINT OF CARE 199 MG/DL (70-110)
[2020-01-10 16:33] VITALS: BP 106/58
[2020-01-10 17:22] LABS: GLUCOMETER DEV NAME(LOC) 3E.C; GLUCOSE,POINT OF CARE 182 MG/DL (70-110)
[2020-01-10 20:30] LABS: GLUCOMETER DEV NAME(LOC) 3E.C; GLUCOSE,POINT OF CARE 149 MG/DL (70-110)
[2020-01-10] MEDS: SIMVASTATIN 40 MG TABLET PO SCH (21:08)
[2020-01-10] MEDS: OXcarbazepine 300 MG TABLET PO SCH (21:08)
[2020-01-11 06:30] LABS: GLUCOMETER DEV NAME(LOC) 3E.C; GLUCOSE,POINT OF CARE 149 MG/DL (70-110)
[2020-01-11] MEDS: GlyBURIDE 5 MG TABLET PO SCH ×2 (06:52→16:35)
[2020-01-11] MEDS: INSULIN LISPRO 100 UNITS/ML SQ PRN ×4 (06:54→20:34)
[2020-01-11] MEDS: ESCITALOPRAM OXALATE 20 MG TABLET PO SCH (08:30)
[2020-01-11] MEDS: LOSARTAN POTASSIUM 50 MG TABLET PO SCH (08:30)
[2020-01-11] MEDS: ASPIRIN 81 MG EC TABLET PO SCH (08:30)
[2020-01-11] MEDS: GABAPENTIN 400 MG CAPSULE PO SCH ×4 (08:30→20:47)
[2020-01-11] MEDS: ARIPiprazole 10 MG TABLET PO SCH (08:30)
[2020-01-11] MEDS: DIVALPROEX SODIUM 500 MG DR TABLET PO SCH ×2 (08:31→16:34)
[2020-01-11 08:45] VITALS: BP 141/77
[2020-01-11] MEDS: INSULIN GLARGINE,HUM.REC.ANLOG 100 UNITS/ML SQ SCH ×2 (08:50→17:19)
[2020-01-11 08:57] LABS: GLUCOMETER DEV NAME(LOC) 3E.C; GLUCOSE,POINT OF CARE 195 MG/DL (70-110)
[2020-01-11 11:13] LABS: GLUCOMETER DEV NAME(LOC) 3E.C; GLUCOSE,POINT OF CARE 122 MG/DL (70-110)
[2020-01-11 16:40] VITALS: BP 141/79
[2020-01-11 20:32] LABS: GLUCOMETER DEV NAME(LOC) 3E.C; GLUCOSE,POINT OF CARE 295 MG/DL (70-110)
[2020-01-11] MEDS: OXcarbazepine 300 MG TABLET PO SCH (20:47)
[2020-01-11] MEDS: SIMVASTATIN 40 MG TABLET PO SCH (20:48)
[2020-01-12 06:21] LABS: GLUCOMETER DEV NAME(LOC) 3E.C; GLUCOSE,POINT OF CARE 141 MG/DL (70-110)
[2020-01-12] MEDS: GlyBURIDE 5 MG TABLET PO SCH ×2 (07:02→16:42)
[2020-01-12] MEDS: INSULIN LISPRO 100 UNITS/ML SQ PRN ×4 (07:07→20:34)
[2020-01-12] MEDS: INSULIN GLARGINE,HUM.REC.ANLOG 100 UNITS/ML SQ SCH ×2 (08:52→16:49)
[2020-01-12] MEDS: ASPIRIN 81 MG EC TABLET PO SCH (09:00)
[2020-01-12] MEDS: ESCITALOPRAM OXALATE 20 MG TABLET PO SCH (09:00)
[2020-01-12] MEDS: LOSARTAN POTASSIUM 50 MG TABLET PO SCH (09:00)
[2020-01-12] MEDS: GABAPENTIN 400 MG CAPSULE PO SCH ×4 (09:00→20:31)
[2020-01-12] MEDS: ARIPiprazole 10 MG TABLET PO SCH (09:00)
[2020-01-12] MEDS: DIVALPROEX SODIUM 500 MG DR TABLET PO SCH ×2 (09:00→16:42)
[2020-01-12 09:45] VITALS: BP 132/81
[2020-01-12 12:18] LABS: GLUCOMETER DEV NAME(LOC) 3E.C; GLUCOSE,POINT OF CARE 109 MG/DL (70-110)
[2020-01-12 17:08] LABS: GLUCOMETER DEV NAME(LOC) 3E.C; GLUCOSE,POINT OF CARE 189 MG/DL (70-110)
[2020-01-12 18:15] VITALS: BP 113/64
[2020-01-12] MEDS: OXcarbazepine 300 MG TABLET PO SCH (20:31)
[2020-01-12] MEDS: SIMVASTATIN 40 MG TABLET PO SCH (20:32)
[2020-01-12 20:42] LABS: GLUCOMETER DEV NAME(LOC) 3E.C; GLUCOSE,POINT OF CARE 151 MG/DL (70-110)
[2020-01-13 06:42] LABS: GLUCOMETER DEV NAME(LOC) 3E.C; GLUCOSE,POINT OF CARE 133 MG/DL (70-110)
[2020-01-13] MEDS: GlyBURIDE 5 MG TABLET PO SCH ×2 (06:50→16:38)
[2020-01-13] MEDS: INSULIN LISPRO 100 UNITS/ML SQ PRN ×2 (06:51→20:06)
[2020-01-13 08:02] VITALS: BP 131/82
[2020-01-13] MEDS: LOSARTAN POTASSIUM 50 MG TABLET PO SCH (08:22)
[2020-01-13] MEDS: ASPIRIN 81 MG EC TABLET PO SCH (08:22)
[2020-01-13] MEDS: GABAPENTIN 400 MG CAPSULE PO SCH ×4 (08:22→20:03)
[2020-01-13] MEDS: ARIPiprazole 10 MG TABLET PO SCH (08:22)
[2020-01-13] MEDS: DIVALPROEX SODIUM 500 MG DR TABLET PO SCH ×2 (08:22→16:05)
[2020-01-13] MEDS: ESCITALOPRAM OXALATE 20 MG TABLET PO SCH (08:22)
[2020-01-13] MEDS: INSULIN GLARGINE,HUM.REC.ANLOG 100 UNITS/ML SQ SCH ×2 (08:36→16:07)
[2020-01-13 11:32] LABS: GLUCOMETER DEV NAME(LOC) 3E.C; GLUCOSE,POINT OF CARE 109 MG/DL (70-110)
[2020-01-13 16:00] VITALS: BP 135/85
[2020-01-13 16:16] LABS: GLUCOMETER DEV NAME(LOC) 3E.I 2; GLUCOSE,POINT OF CARE 121 MG/DL (70-110)
[2020-01-13] MEDS: OXcarbazepine 300 MG TABLET PO SCH (20:03)
[2020-01-13] MEDS: SIMVASTATIN 40 MG TABLET PO SCH (20:03)
[2020-01-13 20:13] LABS: GLUCOMETER DEV NAME(LOC) 3E.I 2; GLUCOSE,POINT OF CARE 159 MG/DL (70-110)
[2020-01-14 05:44] LABS: GLUCOMETER DEV NAME(LOC) 3E.I 2; GLUCOSE,POINT OF CARE 126 MG/DL (70-110)
[2020-01-14] MEDS: GlyBURIDE 5 MG TABLET PO SCH ×2 (06:50→16:39)
[2020-01-14 08:00] VITALS: BP 160/83
[2020-01-14] MEDS: GABAPENTIN 400 MG CAPSULE PO SCH ×4 (08:32→20:08)
[2020-01-14] MEDS: DIVALPROEX SODIUM 500 MG DR TABLET PO SCH ×2 (08:32→16:22)
[2020-01-14] MEDS: ESCITALOPRAM OXALATE 20 MG TABLET PO SCH (08:32)
[2020-01-14] MEDS: LOSARTAN POTASSIUM 50 MG TABLET PO SCH (08:32)
[2020-01-14] MEDS: ARIPiprazole 10 MG TABLET PO SCH (08:32)
[2020-01-14] MEDS: ASPIRIN 81 MG EC TABLET PO SCH (08:33)
[2020-01-14] MEDS: INSULIN GLARGINE,HUM.REC.ANLOG 100 UNITS/ML SQ SCH ×2 (08:39→16:38)
[2020-01-14 11:17] LABS: GLUCOMETER DEV NAME(LOC) 3E.I 2; GLUCOSE,POINT OF CARE 80 MG/DL (70-110)
[2020-01-14 16:01] VITALS: BP 124/79
[2020-01-14] MEDS: INSULIN LISPRO 100 UNITS/ML SQ PRN ×2 (16:39→20:56)
[2020-01-14 17:24] LABS: GLUCOMETER DEV NAME(LOC) 3E.I 2; GLUCOSE,POINT OF CARE 190 MG/DL (70-110)
[2020-01-14] MEDS: OXcarbazepine 300 MG TABLET PO SCH (20:08)
[2020-01-14] MEDS: SIMVASTATIN 40 MG TABLET PO SCH (20:08)
[2020-01-14 21:05] LABS: GLUCOMETER DEV NAME(LOC) 3E.I 2; GLUCOSE,POINT OF CARE 208 MG/DL (70-110)
[2020-01-15] MEDS: ZOLPIDEM TARTRATE 10 MG TABLET PO PRN (01:59)
[2020-01-15] MEDS: LORazepam 2 MG TABLET PO PRN (01:59)
[2020-01-15 05:32] LABS: GLUCOMETER DEV NAME(LOC) 3E.I 2; GLUCOSE,POINT OF CARE 135 MG/DL (70-110)
[2020-01-15 06:06] VITALS: BP 141/87
[2020-01-15] MEDS: GlyBURIDE 5 MG TABLET PO SCH ×2 (06:38→16:46)
[2020-01-15 08:00] VITALS: BP 158/88
[2020-01-15] MEDS: ESCITALOPRAM OXALATE 20 MG TABLET PO SCH (10:18)
[2020-01-15] MEDS: GABAPENTIN 400 MG CAPSULE PO SCH ×4 (10:18→20:58)
[2020-01-15] MEDS: ARIPiprazole 10 MG TABLET PO SCH (10:18)
[2020-01-15] MEDS: DIVALPROEX SODIUM 500 MG DR TABLET PO SCH ×2 (10:18→16:46)
[2020-01-15] MEDS: LOSARTAN POTASSIUM 50 MG TABLET PO SCH (10:18)
[2020-01-15] MEDS: ASPIRIN 81 MG EC TABLET PO SCH (10:18)
[2020-01-15] MEDS: INSULIN GLARGINE,HUM.REC.ANLOG 100 UNITS/ML SQ SCH ×2 (10:23→17:23)
[2020-01-15 11:58] LABS: GLUCOMETER DEV NAME(LOC) 3E.I 2; GLUCOSE,POINT OF CARE 96 MG/DL (70-110)
[2020-01-15 16:00] VITALS: BP 121/65
[2020-01-15 17:09] LABS: GLUCOMETER DEV NAME(LOC) 3E.I 2; GLUCOSE,POINT OF CARE 114 MG/DL (70-110)
[2020-01-15] MEDS: OXcarbazepine 300 MG TABLET PO SCH (20:58)
[2020-01-15] MEDS: SIMVASTATIN 40 MG TABLET PO SCH (20:58)
[2020-01-15 21:26] LABS: GLUCOMETER DEV NAME(LOC) 3E.I 2; GLUCOSE,POINT OF CARE 61 MG/DL (70-110)
[2020-01-15 21:56] LABS: GLUCOMETER DEV NAME(LOC) 3E.I 2; GLUCOSE,POINT OF CARE 101 MG/DL (70-110)
[2020-01-16] MEDS: ZOLPIDEM TARTRATE 10 MG TABLET PO PRN (00:10)
[2020-01-16 04:36] VITALS: BP 120/70
[2020-01-16 05:40] LABS: GLUCOMETER DEV NAME(LOC) 3E.I 2; GLUCOSE,POINT OF CARE 112 MG/DL (70-110)
[2020-01-16] MEDS: GlyBURIDE 5 MG TABLET PO SCH (06:46)
[2020-01-16] MEDS: GABAPENTIN 400 MG CAPSULE PO SCH ×3 (08:31→16:14)
[2020-01-16] MEDS: DIVALPROEX SODIUM 500 MG DR TABLET PO SCH ×2 (08:31→16:17)
[2020-01-16] MEDS: ASPIRIN 81 MG EC TABLET PO SCH (08:31)
[2020-01-16] MEDS: ARIPiprazole 10 MG TABLET PO SCH (08:32)
[2020-01-16] MEDS: LOSARTAN POTASSIUM 50 MG TABLET PO SCH (08:32)
[2020-01-16] MEDS: ESCITALOPRAM OXALATE 20 MG TABLET PO SCH (08:32)
[2020-01-16] MEDS: INSULIN GLARGINE,HUM.REC.ANLOG 100 UNITS/ML SQ SCH (08:40)
[2020-01-16] MEDS ORDERED: ESCI20TA87 PO (08:54)
[2020-01-16] MEDS ORDERED: ARIP10TA8 PO (08:54)
[2020-01-16 09:15] VITALS: BP 163/100
[2020-01-16 12:06] LABS: GLUCOMETER DEV NAME(LOC) 3E.I 2; GLUCOSE,POINT OF CARE 55 MG/DL (70-110)
[2020-01-16 12:56] LABS: GLUCOMETER DEV NAME(LOC) 3E.I 2; GLUCOSE,POINT OF CARE 206 MG/DL (70-110)
== END 2020-01-16 16:30 | disposition home or self-care (01) | DRG 885 ==
LOC: 3EC 11:00 → 3EI 01-13 13:30
PROVIDERS: ADMIT Psychiatry & Neurology Child & Adolescent Psychiatry
DX: F25.0 Schizoaffective disorder, bipolar type (principal); F15.10 Other stimulant abuse, uncomplicated; F12.10 Cannabis abuse, uncomplicated; E11.9 Type 2 diabetes mellitus without complications; E78.5 Hyperlipidemia, unspecified; F10.10 Alcohol abuse, uncomplicated; F25.9 Schizoaffective disorder, unspecified; G40.909 Epilepsy, unspecified, not intractable, without status epilepticus; G47.33 Obstructive sleep apnea (adult) (pediatric); G62.9 Polyneuropathy, unspecified; I10 Essential (primary) hypertension; R45.850 Homicidal ideations; Z91.5 Personal history of self-harm; Z79.899 Other long term (current) drug therapy
CPT/HCPCS: 80307; 83036; 84443; 87081; 94660; J1815

== ENCOUNTER 2020-12-11 07:37 | Inpatient (IN) | payer MEDICAID ==
[~2020-12-11] VITALS: Ht 172.7 cm; Wt 78.5 kg
[~2020-12-11 07:37] MED LIST changes: +ARIP10TA38 PO; +ASPI-1450 PO; -ASPI-728 PO; -DIVA-111 PO; +DIVA-112 PO; -GLYB5 PO; +GLYB5TAB10 PO
[2020-12-11] MEDS ORDERED: ZOLPIDEM TARTRATE 10 MG TABLET PO PRN (09:15)
[2020-12-11] MEDS ORDERED: HALOPERIDOL 5 MG TABLET PO PRN (09:15)
[2020-12-11 11:21] LABS: GLUCOMETER DEV NAME(LOC) BV3N.; GLUCOSE,POINT OF CARE 201 MG/DL (70-110)
[2020-12-11] MEDS ORDERED: CloNIDine HCL 0.1 MG TABLET PO PRN (11:45)
[2020-12-11] MEDS ORDERED: LOPERAMIDE HCL 2 MG CAPSULE PO PRN (11:45)
[2020-12-11] MEDS ORDERED: ONDANSETRON HCL 4 MG TABLET PO PRN (11:45)
[2020-12-11] MEDS ORDERED: PETROLATUM,WHITE 28 GM JELLY TP PRN (11:45)
[2020-12-11] MEDS ORDERED: GLUCAGON,HUMAN RECOMBINANT 1 MG VIAL IM PRN (11:45)
[2020-12-11] MEDS ORDERED: BACITRACIN 28 GM OINTMENT TP PRN (11:45)
[2020-12-11] MEDS ORDERED: OMEPRAZOLE 20 MG CAPSULE PO PRN (11:45)
[2020-12-11] MEDS ORDERED: DOCUSATE SODIUM 100 MG CAPSULE PO PRN (11:45)
[2020-12-11] MEDS ORDERED: ACETAMINOPHEN 325 MG TABLET PO PRN (11:45)
[2020-12-11] MEDS ORDERED: MAGNESIUM HYDROXIDE SUSPENSION 30 ML UDCUP PO PRN (11:45)
[2020-12-11] MEDS ORDERED: ALBUTEROL SULFATE HFA 90 MCG/PUFF 8 GM INHALER IH PRN (11:45)
[2020-12-11] MEDS ORDERED: MAG HYDROX/AL HYDROX/SIMETH ES 30 ML SUSPENSION UDCUP PO PRN (11:45)
[2020-12-11] MEDS ORDERED: BENZOCAINE/MENTHOL LOZENGE PO PRN (11:45)
[2020-12-11] MEDS: GABAPENTIN 400 MG CAPSULE PO SCH ×3 (12:44→21:14)
[2020-12-11] MEDS ORDERED: PNEUMOCOCCAL VACCINE POLYVALENT 0.5 ML VIAL [PPSV23] IM. ONE (13:30)
[2020-12-11 16:05] VITALS: BP 103/69
[2020-12-11] MEDS: LOSARTAN POTASSIUM 50 MG TABLET PO SCH (17:03)
[2020-12-11] MEDS: LORazepam 2 MG TABLET PO PRN ×2 (17:03→23:58)
[2020-12-11] MEDS: MICONAZOLE NITRATE 2% 30 GM CREAM TP SCH (17:03)
[2020-12-11] MEDS: INSULIN LISPRO 100 UNITS/ML SQ PRN ×2 (17:05→21:16)
[2020-12-11] MEDS: INSULIN GLARGINE,HUM.REC.ANLOG 100 UNITS/ML SQ SCH (17:05)
[2020-12-11 17:44] LABS: GLUCOMETER DEV NAME(LOC) BV3N.; GLUCOSE,POINT OF CARE 147 MG/DL (70-110)
[2020-12-11] MEDS: SIMVASTATIN 40 MG TABLET PO SCH (21:14)
[2020-12-11 21:36] LABS: GLUCOMETER DEV NAME(LOC) BV3N.; GLUCOSE,POINT OF CARE 130 MG/DL (70-110)
[2020-12-12 00:29] VITALS: BP 136/85
[2020-12-12 06:24] LABS: GLUCOMETER DEV NAME(LOC) BV3N.; GLUCOSE,POINT OF CARE 149 MG/DL (70-110)
[2020-12-12] MEDS: INSULIN LISPRO 100 UNITS/ML SQ PRN ×2 (06:27→21:42)
[2020-12-12 07:48] LABS: BASOPHILS % (AUTO) 0.6 % (0.0-2.0); EOSINOPHILS % (AUTO) 3.6 % (1.0-6.0); HEMATOCRIT 44.1 % (41-53); HEMOGLOBIN 14.5 g/dL (13.5-17.5); LYMPHOCYTES # (AUTO) 2.4 K/uL (1.0-4.8); LYMPHOCYTES % (AUTO) 31.7 % (22.0-44.0); MEAN CORPUSCULAR HEMOGLOBIN 28.4 pg (26.0-34.0); MEAN CORPUSCULAR HGB CONC 32.9 G/dL (31.0-37.0); MEAN CORPUSCULAR VOLUME 87 fL (80-100); MONOCYTES # (AUTO) 0.5 K/uL (0.1-1.0); MONOCYTES % (AUTO) 7.4 % (2.0-9.0); NEUTROPHILS # (AUTO) 4.2 K/uL (1.8-7.7); NEUTROPHILS % (AUTO) 56.7 % (40.0-70.0); PLATELET COUNT (AUTO) 204 K/uL (150-450); RED BLOOD CELL COUNT(AUTO) 5.11 MIL/uL (4.50-5.90); RED CELL DISTRIBUTION WIDTH 14.4 % (11.5-14.5)
[2020-12-12 08:19] VITALS: BP 118/66
[2020-12-12 08:31] LABS: ALANINE AMINOTRANSFERASE 23 U/L (12-78); ALBUMIN 3.3 g/dL (3.4-5.0); ALKALINE PHOSPHATASE 82 U/L (46-116); ANION GAP 9 mmol/L (8-16); ASPARTATE AMINOTRANSFERASE 13 U/L (15-37); BILIRUBIN,TOTAL 0.3 mg/dL (0.1-1.0); CALCIUM, TOTAL 9.1 mg/dL (8.8-10.5); CARBON DIOXIDE 28 mmol/L (22-29); CHLORIDE 101 mmol/L (98-107); CHOL/HDL RATIO 4.5 (4.2-7.3); CHOLESTEROL 143 mg/dL (131-200); CREATININE 1.17 mg/dL (0.60-1.30); FREE T4 (FREE THYROXINE) 1.11 ng/dL (0.76-1.46); GLOMERULAR FILTR. RATE CALC > 60 mL/min (>60); GLUCOSE,RANDOM 181 mg/dL (70-110); HDL CHOLESTEROL 32 mg/dL (40-60); LDL CHOL (CALC.) 86 mg/dL (0-130); POTASSIUM 3.8 mmol/L (3.5-5.1); SODIUM SERUM 138 mmol/L (136-145); THYROID STIMULATING HORMONE 1.53 uIU/mL (0.36-3.74); TOTAL PROTEIN, SERUM 6.9 g/dL (6.4-8.2); TRIGLYCERIDES 126 mg/dL (15-150); UREA NITROGEN, BLOOD 31 mg/dL (7-18)
[2020-12-12] MEDS: ASPIRIN 81 MG CHEWABLE TABLET PO SCH (09:13)
[2020-12-12] MEDS: GABAPENTIN 400 MG CAPSULE PO SCH ×4 (09:13→20:08)
[2020-12-12] MEDS: LORazepam 2 MG TABLET PO PRN (09:13)
[2020-12-12] MEDS: LOSARTAN POTASSIUM 50 MG TABLET PO SCH (09:14)
[2020-12-12] MEDS: MICONAZOLE NITRATE 2% 30 GM CREAM TP SCH ×2 (09:14→16:52)
[2020-12-12] MEDS: INSULIN GLARGINE,HUM.REC.ANLOG 100 UNITS/ML SQ SCH ×2 (09:25→16:46)
[2020-12-12 09:36] LABS: GLUCOMETER DEV NAME(LOC) BV3N.; GLUCOSE,POINT OF CARE 211 MG/DL (70-110)
[2020-12-12 11:55] LABS: GLUCOMETER DEV NAME(LOC) BV3S.; GLUCOSE,POINT OF CARE 154 MG/DL (70-110)
[2020-12-12 16:08] VITALS: BP 126/72
[2020-12-12 16:56] LABS: GLUCOMETER DEV NAME(LOC) BV3N.; GLUCOSE,POINT OF CARE 212 MG/DL (70-110)
[2020-12-12] MEDS: SIMVASTATIN 40 MG TABLET PO SCH (20:08)
[2020-12-12 20:42] LABS: GLUCOMETER DEV NAME(LOC) BV3N.; GLUCOSE,POINT OF CARE 235 MG/DL (70-110)
[2020-12-13 00:28] VITALS: BP 148/95
[2020-12-13] MEDS: LORazepam 2 MG TABLET PO PRN ×3 (02:36→14:07)
[2020-12-13] MEDS: INSULIN LISPRO 100 UNITS/ML SQ PRN ×4 (06:30→21:04)
[2020-12-13 08:24] VITALS: BP_SYST 145; BP_SYST 168; BP_DIAS 86
[2020-12-13] MEDS: ASPIRIN 81 MG CHEWABLE TABLET PO SCH (09:15)
[2020-12-13] MEDS: GABAPENTIN 400 MG CAPSULE PO SCH ×4 (09:15→21:01)
[2020-12-13] MEDS: LOSARTAN POTASSIUM 50 MG TABLET PO SCH (09:15)
[2020-12-13] MEDS: INSULIN GLARGINE,HUM.REC.ANLOG 100 UNITS/ML SQ SCH ×2 (09:46→16:54)
[2020-12-13] MEDS: MICONAZOLE NITRATE 2% 30 GM CREAM TP SCH ×2 (09:53→17:29)
[2020-12-13 12:03] LABS: GLUCOMETER DEV NAME(LOC) BV3N.; GLUCOSE,POINT OF CARE 143 MG/DL (70-110)
[2020-12-13] MEDS: IBUPROFEN 600 MG TABLET PO PRN (12:05)
[2020-12-13 16:01] VITALS: BP 141/92
[2020-12-13 17:33] LABS: GLUCOMETER DEV NAME(LOC) BV3N.; GLUCOSE,POINT OF CARE 250 MG/DL (70-110)
[2020-12-13] MEDS ORDERED: QUEtiapine FUMARATE 200 MG TABLET PO SCH (21:00)
[2020-12-13] MEDS: SIMVASTATIN 40 MG TABLET PO SCH (21:01)
[2020-12-13 21:18] LABS: GLUCOMETER DEV NAME(LOC) BV3N.; GLUCOSE,POINT OF CARE 235 MG/DL (70-110)
[2020-12-14 05:03] VITALS: BP 142/85
[2020-12-14 06:19] LABS: GLUCOMETER DEV NAME(LOC) BV3N.; GLUCOSE,POINT OF CARE 175 MG/DL (70-110)
[2020-12-14] MEDS: INSULIN LISPRO 100 UNITS/ML SQ PRN ×4 (06:24→21:15)
[2020-12-14] MEDS: QUEtiapine FUMARATE 100 MG TABLET PO SCH (08:20)
[2020-12-14] MEDS: ASPIRIN 81 MG CHEWABLE TABLET PO SCH (08:20)
[2020-12-14] MEDS: LOSARTAN POTASSIUM 50 MG TABLET PO SCH (08:20)
[2020-12-14] MEDS: LORazepam 2 MG TABLET PO PRN ×3 (08:20→21:42)
[2020-12-14] MEDS: GABAPENTIN 400 MG CAPSULE PO SCH ×4 (08:20→21:12)
[2020-12-14 08:21] VITALS: BP 132/76
[2020-12-14] MEDS: INSULIN GLARGINE,HUM.REC.ANLOG 100 UNITS/ML SQ SCH ×2 (09:19→17:17)
[2020-12-14] MEDS: MICONAZOLE NITRATE 2% 30 GM CREAM TP SCH ×2 (09:21→17:18)
[2020-12-14 11:20] LABS: GLUCOMETER DEV NAME(LOC) BV3N.; GLUCOSE,POINT OF CARE 173 MG/DL (70-110)
[2020-12-14 16:07] VITALS: BP 144/77
[2020-12-14 17:33] LABS: GLUCOMETER DEV NAME(LOC) BV3N.; GLUCOSE,POINT OF CARE 190 MG/DL (70-110)
[2020-12-14] MEDS: SIMVASTATIN 40 MG TABLET PO SCH (21:12)
[2020-12-14 21:31] LABS: GLUCOMETER DEV NAME(LOC) BV3S.; GLUCOSE,POINT OF CARE 189 MG/DL (70-110)
[2020-12-15] VITALS (8 sets, daily range): BP systolic 125–154; BP diastolic 79–95
[2020-12-15 05:46] LABS: GLUCOMETER DEV NAME(LOC) BV3N.; GLUCOSE,POINT OF CARE 155 MG/DL (70-110)
[2020-12-15 06:25] LABS: GLUCOMETER DEV NAME(LOC) BV3N.; GLUCOSE,POINT OF CARE 141 MG/DL (70-110)
[2020-12-15] MEDS: INSULIN LISPRO 100 UNITS/ML SQ PRN ×3 (06:30→21:15)
[2020-12-15] MEDS ORDERED: QUET100T PO (07:44)
[2020-12-15] MEDS ORDERED: GLUC1VIA6 IM (07:44)
[2020-12-15] MEDS ORDERED: IBUP-2070 PO (07:44)
[2020-12-15] MEDS ORDERED: INSU100V SQ (07:44)
[2020-12-15] MEDS ORDERED: ZOLP10TA8 PO (07:44)
[2020-12-15] MEDS ORDERED: LORA-1001 PO (07:44)
[2020-12-15] MEDS ORDERED: QUET200T PO (07:44)
[2020-12-15] MEDS ORDERED: HALO5TAB2 PO (07:44)
[2020-12-15] MEDS: MICONAZOLE NITRATE 2% 30 GM CREAM TP SCH ×2 (11:48→17:01)
[2020-12-15] MEDS: GABAPENTIN 400 MG CAPSULE PO SCH ×4 (11:49→21:06)
[2020-12-15] MEDS: QUEtiapine FUMARATE 100 MG TABLET PO SCH (11:49)
[2020-12-15] MEDS: ASPIRIN 81 MG CHEWABLE TABLET PO SCH (11:49)
[2020-12-15] MEDS: LOSARTAN POTASSIUM 50 MG TABLET PO SCH (11:49)
[2020-12-15] MEDS: INSULIN GLARGINE,HUM.REC.ANLOG 100 UNITS/ML SQ SCH ×2 (11:51→17:08)
[2020-12-15 11:59] LABS: GLUCOMETER DEV NAME(LOC) BV3N.; GLUCOSE,POINT OF CARE 98 MG/DL (70-110)
[2020-12-15 16:53] LABS: GLUCOMETER DEV NAME(LOC) BV3N.; GLUCOSE,POINT OF CARE 238 MG/DL (70-110)
[2020-12-15] MEDS: SIMVASTATIN 40 MG TABLET PO SCH (21:06)
[2020-12-15] MEDS: QUEtiapine FUMARATE 300 MG TABLET PO SCH (21:06)
[2020-12-15 21:11] LABS: GLUCOMETER DEV NAME(LOC) BV3N.; GLUCOSE,POINT OF CARE 201 MG/DL (70-110)
[2020-12-16 00:08] VITALS: BP 114/72
[2020-12-16] MEDS: IBUPROFEN 600 MG TABLET PO PRN (05:02)
[2020-12-16 06:16] LABS: GLUCOMETER DEV NAME(LOC) BV3N.; GLUCOSE,POINT OF CARE 229 MG/DL (70-110)
[2020-12-16] MEDS: INSULIN LISPRO 100 UNITS/ML SQ PRN ×4 (06:28→21:06)
[2020-12-16 08:15] VITALS: BP 143/87
[2020-12-16] MEDS: MICONAZOLE NITRATE 2% 30 GM CREAM TP SCH ×2 (09:01→16:21)
[2020-12-16] MEDS: LOSARTAN POTASSIUM 50 MG TABLET PO SCH (09:01)
[2020-12-16] MEDS: GABAPENTIN 400 MG CAPSULE PO SCH ×4 (09:01→21:03)
[2020-12-16] MEDS: ASPIRIN 81 MG CHEWABLE TABLET PO SCH (09:01)
[2020-12-16] MEDS: QUEtiapine FUMARATE 100 MG TABLET PO SCH (09:01)
[2020-12-16] MEDS: INSULIN GLARGINE,HUM.REC.ANLOG 100 UNITS/ML SQ SCH ×2 (09:04→16:21)
[2020-12-16 09:12] LABS: GLUCOMETER DEV NAME(LOC) BV3N.; GLUCOSE,POINT OF CARE 281 MG/DL (70-110)
[2020-12-16 11:22] LABS: GLUCOMETER DEV NAME(LOC) BV3N.; GLUCOSE,POINT OF CARE 158 MG/DL (70-110)
[2020-12-16 16:07] VITALS: BP 146/95
[2020-12-16 16:26] LABS: GLUCOMETER DEV NAME(LOC) BV3N.; GLUCOSE,POINT OF CARE 198 MG/DL (70-110)
[2020-12-16 20:40] LABS: GLUCOMETER DEV NAME(LOC) BV3N.; GLUCOSE,POINT OF CARE 223 MG/DL (70-110)
[2020-12-16] MEDS: QUEtiapine FUMARATE 300 MG TABLET PO SCH (21:03)
[2020-12-16] MEDS: SIMVASTATIN 40 MG TABLET PO SCH (21:03)
[2020-12-17 05:07] VITALS: BP 132/81
[2020-12-17 06:15] LABS: GLUCOMETER DEV NAME(LOC) BV3N.; GLUCOSE,POINT OF CARE 249 MG/DL (70-110)
[2020-12-17] MEDS: INSULIN LISPRO 100 UNITS/ML SQ PRN ×2 (06:41→11:34)
[2020-12-17 08:50] LABS: GLUCOMETER DEV NAME(LOC) BV3N.; GLUCOSE,POINT OF CARE 241 MG/DL (70-110)
[2020-12-17] MEDS: LOSARTAN POTASSIUM 50 MG TABLET PO SCH (08:51)
[2020-12-17] MEDS: GABAPENTIN 400 MG CAPSULE PO SCH ×2 (08:51→12:30)
[2020-12-17] MEDS: QUEtiapine FUMARATE 100 MG TABLET PO SCH (08:51)
[2020-12-17] MEDS: MICONAZOLE NITRATE 2% 30 GM CREAM TP SCH (08:51)
[2020-12-17] MEDS: ASPIRIN 81 MG CHEWABLE TABLET PO SCH (08:51)
[2020-12-17] MEDS: INSULIN GLARGINE,HUM.REC.ANLOG 100 UNITS/ML SQ SCH (08:57)
[2020-12-17 09:10] VITALS: BP 139/80
[2020-12-17 11:23] LABS: GLUCOMETER DEV NAME(LOC) BV3N.; GLUCOSE,POINT OF CARE 228 MG/DL (70-110)
[2020-12-17] MEDS ORDERED: QUET300T2 PO (12:34)
== END 2020-12-17 16:20 | disposition home or self-care (01) | DRG 750 ==
LOC: B3A 09:55
PROVIDERS: ADMIT Psychiatry & Neurology Psychiatry; ATTEND Psychiatry & Neurology Psychiatry
DX: F25.9 Schizoaffective disorder, unspecified (principal); E11.65 Type 2 diabetes mellitus with hyperglycemia; E78.5 Hyperlipidemia, unspecified; F41.9 Anxiety disorder, unspecified; G47.00 Insomnia, unspecified; I10 Essential (primary) hypertension; J44.9 Chronic obstructive pulmonary disease, unspecified; K21.9 Gastro-esophageal reflux disease without esophagitis; K59.00 Constipation, unspecified
CPT/HCPCS: 80053; 80061; 82962; 83036; 84436; 84439; 84443; 85025; G0480; J1815

== ENCOUNTER 2020-12-15 07:19 | Emergency (ER) | payer MEDICAID ==
[~2020-12-15] VITALS: Ht 172.7 cm; Wt 78.4 kg
[2020-12-15 07:42] LABS: GLUCOSE,POINT OF CARE 187 MG/DL (70-110)
[2020-12-15] MEDS ORDERED: ZOLP10TA8 PO (07:44)
[2020-12-15] MEDS ORDERED: IBUP-2070 PO (07:44)
[2020-12-15] MEDS ORDERED: QUET200T PO (07:44)
[2020-12-15] MEDS ORDERED: GLUC1VIA6 IM (07:44)
[2020-12-15] MEDS ORDERED: HALO5TAB2 PO (07:44)
[2020-12-15] MEDS ORDERED: QUET100T PO (07:44)
[2020-12-15] MEDS ORDERED: INSU100V SQ (07:44)
[2020-12-15] MEDS ORDERED: LORA-1001 PO (07:44)
[2020-12-15 11:05] VITALS: BP 135/64
== END 2020-12-15 12:02 | disposition home or self-care (01) ==
LOC: EMS 07:19
DX: S40.012A Contusion of left shoulder, initial encounter (principal); S70.02XA Contusion of left hip, initial encounter; E11.9 Type 2 diabetes mellitus without complications; Z88.8 Allergy status to other drugs, medicaments and biological substances; Z79.899 Other long term (current) drug therapy; I10 Essential (primary) hypertension; W01.0XXA Fall on same level from slipping, tripping and stumbling without subsequent striking against object, initial encounter; Y93.89 Activity, other specified; Y92.89 Other specified places as the place of occurrence of the external cause; Y99.8 Other external cause status
CPT/HCPCS: 73503; 82962; 99284

== ENCOUNTER 2021-01-29 18:40 | Inpatient (IN) | payer MEDICAID ==
[~2021-01-29] VITALS: Ht 170.2 cm; Wt 82.6 kg
[~2021-01-29 18:40] MED LIST changes: -ARIP10TA38 PO; -DIVA-112 PO; -ESCI20TA87 PO; -GLYB5TAB10 PO; -INSLAN SQ; -OXCA300T28 PO; +QUET100T PO; +QUET300T2 PO
[2021-01-29 23:50] VITALS: BP 138/86
[2021-01-30 00:10] VITALS: BP 138/86
[2021-01-30] MEDS: ZOLPIDEM TARTRATE 10 MG TABLET PO PRN ×2 (00:28→20:57)
[2021-01-30] MEDS: LORazepam 2 MG TABLET PO PRN (00:29)
[2021-01-30 06:10] LABS: GLUCOMETER DEV NAME(LOC) BV2S.; GLUCOSE,POINT OF CARE 119 MG/DL (70-110)
[2021-01-30 06:59] VITALS: BP 138/86
[2021-01-30] MEDS ORDERED: NICOTINE 14 MG/24 HOUR PATCH TD PRN (08:00)
[2021-01-30] MEDS ORDERED: MAGNESIUM HYDROXIDE SUSPENSION 30 ML UDCUP PO PRN (08:00)
[2021-01-30] MEDS ORDERED: ALBUTEROL SULFATE HFA 90 MCG/PUFF 8 GM INHALER IH PRN (08:00)
[2021-01-30] MEDS ORDERED: ONDANSETRON HCL 4 MG TABLET PO PRN (08:00)
[2021-01-30] MEDS ORDERED: CloNIDine HCL 0.1 MG TABLET PO PRN (08:00)
[2021-01-30] MEDS ORDERED: ACETAMINOPHEN 325 MG TABLET PO PRN (08:00)
[2021-01-30] MEDS ORDERED: PETROLATUM,WHITE 28 GM JELLY TP PRN (08:00)
[2021-01-30] MEDS ORDERED: DOCUSATE SODIUM 100 MG CAPSULE PO PRN (08:00)
[2021-01-30] MEDS ORDERED: LOPERAMIDE HCL 2 MG CAPSULE PO PRN (08:00)
[2021-01-30] MEDS ORDERED: MAG HYDROX/AL HYDROX/SIMETH ES 30 ML SUSPENSION UDCUP PO PRN (08:00)
[2021-01-30] MEDS ORDERED: GuaiFENesin/D-METHORPHAN [SUGAR-FREE] 200-20MG/10 ML SYRUP UDCUP PO PRN (08:00)
[2021-01-30 08:20] VITALS: BP 149/89
[2021-01-30] MEDS: LOSARTAN POTASSIUM 50 MG TABLET PO SCH ×2 (09:00→13:34)
[2021-01-30 09:25] LABS: BASOPHILS % (AUTO) 0.7 % (0.0-2.0); LYMPHOCYTES % (AUTO) 31.4 % (22.0-44.0); MEAN CORPUSCULAR HEMOGLOBIN 27.6 pg (26.0-34.0); MEAN CORPUSCULAR HGB CONC 33.3 G/dL (31.0-37.0); MEAN CORPUSCULAR VOLUME 83 fL (80-100); MONOCYTES # (AUTO) 0.5 K/uL (0.1-1.0); NEUTROPHILS # (AUTO) 3.7 K/uL (1.8-7.7); NEUTROPHILS % (AUTO) 56.9 % (40.0-70.0); PLATELET COUNT (AUTO) 241 K/uL (150-450); RED CELL DISTRIBUTION WIDTH 14.6 % (11.5-14.5)
[2021-01-30] MEDS: GABAPENTIN 400 MG CAPSULE PO SCH ×4 (09:26→20:53)
[2021-01-30] MEDS: ASPIRIN 81 MG CHEWABLE TABLET PO SCH (09:26)
[2021-01-30] MEDS ORDERED: GLUCAGON,HUMAN RECOMBINANT 1 MG VIAL IM PRN (10:15)
[2021-01-30 10:51] LABS: ALANINE AMINOTRANSFERASE 24 U/L (12-78); ALBUMIN 3.1 g/dL (3.4-5.0); ALKALINE PHOSPHATASE 76 U/L (46-116); ANION GAP 2 mmol/L (8-16); ASPARTATE AMINOTRANSFERASE 16 U/L (15-37); BILIRUBIN,TOTAL 0.3 mg/dL (0.1-1.0); CALCIUM, TOTAL 9.2 mg/dL (8.8-10.5); CARBON DIOXIDE 28 mmol/L (22-29); CHLORIDE 107 mmol/L (98-107); CHOL/HDL RATIO 3.4 (4.2-7.3); CHOLESTEROL 124 mg/dL (131-200); CREATININE 1.03 mg/dL (0.60-1.30); FREE T4 (FREE THYROXINE) 1.25 ng/dL (0.76-1.46); GLOMERULAR FILTR. RATE CALC > 60 mL/min (>60); GLUCOSE,RANDOM 101 mg/dL (70-110); HDL CHOLESTEROL 36 mg/dL (40-60); LDL CHOL (CALC.) 71 mg/dL (0-130); POTASSIUM 4.3 mmol/L (3.5-5.1); SODIUM SERUM 137 mmol/L (136-145); TOTAL PROTEIN, SERUM 7.1 g/dL (6.4-8.2); TRIGLYCERIDES 86 mg/dL (15-150); UREA NITROGEN, BLOOD 29 mg/dL (7-18)
[2021-01-30 11:47] LABS: GLUCOMETER DEV NAME(LOC) BV2S.; GLUCOSE,POINT OF CARE 193 MG/DL (70-110)
[2021-01-30] MEDS: INSULIN LISPRO 100 UNITS/ML SQ PRN ×3 (11:47→20:45)
[2021-01-30 16:12] VITALS: BP 137/81
[2021-01-30 16:48] LABS: GLUCOMETER DEV NAME(LOC) BV2S.; GLUCOSE,POINT OF CARE 170 MG/DL (70-110)
[2021-01-30] MEDS: INSULIN GLARGINE,HUM.REC.ANLOG 100 UNITS/ML SQ SCH (17:01)
[2021-01-30 19:20] VITALS: BP 142/84
[2021-01-30] MEDS: IBUPROFEN 400 MG TABLET PO PRN (19:20)
[2021-01-30 20:20] VITALS: BP 142/84
[2021-01-30 20:28] LABS: GLUCOMETER DEV NAME(LOC) BV2S.; GLUCOSE,POINT OF CARE 135 MG/DL (70-110)
[2021-01-30] MEDS: SIMVASTATIN 40 MG TABLET PO SCH (20:53)
[2021-01-30] MEDS: QUEtiapine FUMARATE 300 MG TABLET PO SCH (20:53)
[2021-01-31 01:50] VITALS: BP 139/82
[2021-01-31 06:24] LABS: GLUCOMETER DEV NAME(LOC) BV2S.; GLUCOSE,POINT OF CARE 164 MG/DL (70-110)
[2021-01-31] MEDS: INSULIN LISPRO 100 UNITS/ML SQ PRN ×4 (06:53→20:26)
[2021-01-31] MEDS: GABAPENTIN 400 MG CAPSULE PO SCH ×4 (08:40→20:14)
[2021-01-31] MEDS: QUEtiapine FUMARATE 100 MG TABLET PO SCH (08:40)
[2021-01-31] MEDS: ASPIRIN 81 MG CHEWABLE TABLET PO SCH (08:40)
[2021-01-31] MEDS: INSULIN GLARGINE,HUM.REC.ANLOG 100 UNITS/ML SQ SCH ×2 (09:06→16:49)
[2021-01-31 09:18] VITALS: BP 140/73
[2021-01-31 09:24] VITALS: BP 140/73
[2021-01-31 14:04] LABS: GLUCOMETER DEV NAME(LOC) BV2S.; GLUCOSE,POINT OF CARE 266 MG/DL (70-110)
[2021-01-31 16:14] VITALS: BP 137/71
[2021-01-31 16:51] LABS: GLUCOMETER DEV NAME(LOC) BV2S.; GLUCOSE,POINT OF CARE 189 MG/DL (70-110)
[2021-01-31] MEDS: QUEtiapine FUMARATE 300 MG TABLET PO SCH (20:13)
[2021-01-31] MEDS: SIMVASTATIN 40 MG TABLET PO SCH (20:14)
[2021-01-31 20:41] LABS: GLUCOMETER DEV NAME(LOC) BV2S.; GLUCOSE,POINT OF CARE 240 MG/DL (70-110)
[2021-02-01 01:20] VITALS: BP 112/80
[2021-02-01 06:24] LABS: GLUCOMETER DEV NAME(LOC) BV2S.; GLUCOSE,POINT OF CARE 175 MG/DL (70-110)
[2021-02-01] MEDS: INSULIN LISPRO 100 UNITS/ML SQ PRN ×4 (06:41→21:32)
[2021-02-01 08:25] VITALS: BP 140/84
[2021-02-01] MEDS: QUEtiapine FUMARATE 100 MG TABLET PO SCH (09:03)
[2021-02-01] MEDS: ASPIRIN 81 MG CHEWABLE TABLET PO SCH (09:03)
[2021-02-01] MEDS: GABAPENTIN 400 MG CAPSULE PO SCH ×4 (09:03→19:50)
[2021-02-01] MEDS: LOSARTAN POTASSIUM 50 MG TABLET PO SCH (09:04)
[2021-02-01] MEDS: INSULIN GLARGINE,HUM.REC.ANLOG 100 UNITS/ML SQ SCH ×2 (09:06→17:00)
[2021-02-01 09:12] LABS: GLUCOMETER DEV NAME(LOC) BV2S.; GLUCOSE,POINT OF CARE 195 MG/DL (70-110)
[2021-02-01 11:37] LABS: GLUCOMETER DEV NAME(LOC) BV2S.; GLUCOSE,POINT OF CARE 170 MG/DL (70-110)
[2021-02-01 16:14] VITALS: BP 150/97
[2021-02-01 17:20] LABS: GLUCOMETER DEV NAME(LOC) BV2S.; GLUCOSE,POINT OF CARE 191 MG/DL (70-110)
[2021-02-01] MEDS: SIMVASTATIN 40 MG TABLET PO SCH (19:50)
[2021-02-01] MEDS: QUEtiapine FUMARATE 300 MG TABLET PO SCH (19:50)
[2021-02-01 20:08] LABS: GLUCOMETER DEV NAME(LOC) BV2S.; GLUCOSE,POINT OF CARE 218 MG/DL (70-110)
[2021-02-01] MEDS: ZOLPIDEM TARTRATE 10 MG TABLET PO PRN (23:04)
[2021-02-02 00:31] VITALS: BP 126/89
[2021-02-02 06:33] LABS: GLUCOMETER DEV NAME(LOC) BV2S.; GLUCOSE,POINT OF CARE 231 MG/DL (70-110)
[2021-02-02] MEDS: INSULIN LISPRO 100 UNITS/ML SQ PRN ×3 (06:36→16:38)
[2021-02-02 08:13] VITALS: BP 150/77
[2021-02-02] MEDS: LOSARTAN POTASSIUM 50 MG TABLET PO SCH (08:42)
[2021-02-02] MEDS: ASPIRIN 81 MG CHEWABLE TABLET PO SCH (08:43)
[2021-02-02] MEDS: GABAPENTIN 400 MG CAPSULE PO SCH ×4 (08:43→20:34)
[2021-02-02] MEDS: QUEtiapine FUMARATE 100 MG TABLET PO SCH (08:45)
[2021-02-02] MEDS: INSULIN GLARGINE,HUM.REC.ANLOG 100 UNITS/ML SQ SCH ×2 (08:52→16:39)
[2021-02-02 09:03] LABS: GLUCOMETER DEV NAME(LOC) BV2S.; GLUCOSE,POINT OF CARE 266 MG/DL (70-110)
[2021-02-02] MEDS ORDERED: HYDROCHLOROTHIAZIDE 25 MG TABLET PO SCH (11:00)
[2021-02-02 11:52] LABS: GLUCOMETER DEV NAME(LOC) BV2S.; GLUCOSE,POINT OF CARE 259 MG/DL (70-110)
[2021-02-02] MEDS: PETROLATUM,WHITE 28 GM JELLY TP SCH (12:38)
[2021-02-02 16:14] VITALS: BP 148/89
[2021-02-02] MEDS: IBUPROFEN 400 MG TABLET PO PRN (16:19)
[2021-02-02 16:24] LABS: GLUCOMETER DEV NAME(LOC) BV2S.; GLUCOSE,POINT OF CARE 313 MG/DL (70-110)
[2021-02-02] MEDS: SIMVASTATIN 40 MG TABLET PO SCH (20:34)
[2021-02-02] MEDS: QUEtiapine FUMARATE 300 MG TABLET PO SCH (20:34)
[2021-02-02 20:41] LABS: GLUCOMETER DEV NAME(LOC) BV2S.; GLUCOSE,POINT OF CARE 275 MG/DL (70-110)
[2021-02-02] MEDS: LORazepam 2 MG TABLET PO PRN (20:48)
[2021-02-03 01:20] VITALS: BP 131/78
[2021-02-03 06:26] LABS: GLUCOMETER DEV NAME(LOC) BV2S.; GLUCOSE,POINT OF CARE 167 MG/DL (70-110)
[2021-02-03] MEDS: INSULIN LISPRO 100 UNITS/ML SQ PRN ×4 (06:45→21:47)
[2021-02-03 08:07] VITALS: BP 161/79
[2021-02-03 08:29] LABS: COVID AG,FIA SOURCE NASOPHARYNGEAL
[2021-02-03 08:36] LABS: APPEARANCE,URINE CLEAR (CLEAR); BILIRUBIN,URINE NEGATIVE (NEGATIVE); GLUCOSE, URINE (UA) >=1000 mg/dL (NEGATIVE); KETONES,URINE TRACE mg/dL (NEGATIVE); LEUKOCYTE ESTERASE ,URINE NEGATIVE (NEGATIVE); NITRATE,URINE NEGATIVE (NEGATIVE); OCCULT BLOOD,URINE NEGATIVE (NEGATIVE); PH,URINE 5.5 (5.0-8.0); PROTEIN,URINE NEGATIVE (NEGATIVE); UROBILINOGEN,URINE 0.2 mg/dL (<=1.0)
[2021-02-03] MEDS: GABAPENTIN 400 MG CAPSULE PO SCH ×4 (08:38→20:19)
[2021-02-03] MEDS: ASPIRIN 81 MG CHEWABLE TABLET PO SCH (08:38)
[2021-02-03] MEDS: QUEtiapine FUMARATE 100 MG TABLET PO SCH (08:38)
[2021-02-03] MEDS: HYDROCHLOROTHIAZIDE 25 MG TABLET PO SCH (08:38)
[2021-02-03] MEDS: LOSARTAN POTASSIUM 50 MG TABLET PO SCH (08:38)
[2021-02-03] MEDS: PETROLATUM,WHITE 28 GM JELLY TP SCH (08:39)
[2021-02-03 08:41] LABS: AMPHET/METH SCREEN,URINE NEGATIVE (NEGATIVE); BARBITURATE SCREEN, URINE NEGATIVE (NEGATIVE); BENZODIAZEPINES SCREEN,URINE NEGATIVE (NEGATIVE); CANNABINOID SCREEN,URINE NEGATIVE (NEGATIVE); COCAINE SCREEN,URINE NEGATIVE (NEGATIVE); METHADONE SCREEN, URINE NEGATIVE (NEGATIVE); OPIATE SCREEN,URINE NEGATIVE (NEGATIVE)
[2021-02-03] MEDS: INSULIN GLARGINE,HUM.REC.ANLOG 100 UNITS/ML SQ SCH ×2 (08:43→17:00)
[2021-02-03 08:53] LABS: PHENCYCLIDINE SCREEN,URINE NEGATIVE (NEGATIVE)
[2021-02-03 11:21] LABS: BACTERIA,URINE None Seen /HPF (None Seen); RBC,URINE 0-2 /HPF (0-2); WBC,URINE 0-2 /HPF (0-5)
[2021-02-03 11:25] LABS: GLUCOMETER DEV NAME(LOC) BV2S.; GLUCOSE,POINT OF CARE 390 MG/DL (70-110)
[2021-02-03 16:14] VITALS: BP 132/78
[2021-02-03 17:20] LABS: GLUCOMETER DEV NAME(LOC) BV2S.; GLUCOSE,POINT OF CARE 191 MG/DL (70-110)
[2021-02-03] MEDS: QUEtiapine FUMARATE 300 MG TABLET PO SCH (20:18)
[2021-02-03] MEDS: SIMVASTATIN 40 MG TABLET PO SCH (20:32)
[2021-02-03 20:53] LABS: GLUCOMETER DEV NAME(LOC) BV2S.; GLUCOSE,POINT OF CARE 269 MG/DL (70-110)
[2021-02-04 01:07] VITALS: BP 136/83
[2021-02-04] MEDS: IBUPROFEN 400 MG TABLET PO PRN (03:05)
[2021-02-04] MEDS: LORazepam 2 MG TABLET PO PRN (04:26)
[2021-02-04 06:18] LABS: GLUCOMETER DEV NAME(LOC) BV2S.; GLUCOSE,POINT OF CARE 219 MG/DL (70-110)
[2021-02-04] MEDS: INSULIN LISPRO 100 UNITS/ML SQ PRN ×4 (06:54→20:49)
[2021-02-04] MEDS: HYDROCHLOROTHIAZIDE 25 MG TABLET PO SCH (08:31)
[2021-02-04] MEDS: ASPIRIN 81 MG CHEWABLE TABLET PO SCH (08:31)
[2021-02-04] MEDS: GABAPENTIN 400 MG CAPSULE PO SCH ×4 (08:31→20:32)
[2021-02-04] MEDS: LOSARTAN POTASSIUM 50 MG TABLET PO SCH (08:31)
[2021-02-04] MEDS: QUEtiapine FUMARATE 100 MG TABLET PO SCH (08:32)
[2021-02-04 08:34] VITALS: BP 129/74
[2021-02-04] MEDS: INSULIN GLARGINE,HUM.REC.ANLOG 100 UNITS/ML SQ SCH ×2 (08:39→16:54)
[2021-02-04] MEDS: PETROLATUM,WHITE 28 GM JELLY TP SCH (08:41)
[2021-02-04 11:46] LABS: GLUCOMETER DEV NAME(LOC) BV2S.; GLUCOSE,POINT OF CARE 344 MG/DL (70-110)
[2021-02-04 16:20] VITALS: BP 136/81
[2021-02-04 16:41] LABS: GLUCOMETER DEV NAME(LOC) BV2S.; GLUCOSE,POINT OF CARE 352 MG/DL (70-110)
[2021-02-04 20:23] LABS: GLUCOMETER DEV NAME(LOC) BV2S.; GLUCOSE,POINT OF CARE 326 MG/DL (70-110)
[2021-02-04] MEDS: ZOLPIDEM TARTRATE 10 MG TABLET PO PRN (20:33)
[2021-02-04] MEDS: SIMVASTATIN 40 MG TABLET PO SCH (20:33)
[2021-02-04] MEDS: QUEtiapine FUMARATE 300 MG TABLET PO SCH (20:33)
[2021-02-05 01:41] VITALS: BP 137/81
[2021-02-05 05:55] VITALS: BP 155/91
[2021-02-05] MEDS: IBUPROFEN 400 MG TABLET PO PRN (05:57)
[2021-02-05] MEDS: LORazepam 2 MG TABLET PO PRN (05:57)
[2021-02-05 06:39] LABS: GLUCOMETER DEV NAME(LOC) BV2S.; GLUCOSE,POINT OF CARE 232 MG/DL (70-110)
[2021-02-05] MEDS: INSULIN LISPRO 100 UNITS/ML SQ PRN ×4 (06:42→22:11)
[2021-02-05 06:57] VITALS: BP 125/78
[2021-02-05] MEDS: INSULIN GLARGINE,HUM.REC.ANLOG 100 UNITS/ML SQ SCH ×2 (09:02→17:00)
[2021-02-05 09:08] LABS: GLUCOMETER DEV NAME(LOC) BV2S.; GLUCOSE,POINT OF CARE 388 MG/DL (70-110)
[2021-02-05] MEDS: LOSARTAN POTASSIUM 50 MG TABLET PO SCH (09:30)
[2021-02-05] MEDS: ASPIRIN 81 MG CHEWABLE TABLET PO SCH (09:30)
[2021-02-05] MEDS: QUEtiapine FUMARATE 100 MG TABLET PO SCH (09:30)
[2021-02-05] MEDS: HYDROCHLOROTHIAZIDE 25 MG TABLET PO SCH (09:30)
[2021-02-05] MEDS: PETROLATUM,WHITE 28 GM JELLY TP SCH (09:30)
[2021-02-05] MEDS: GABAPENTIN 400 MG CAPSULE PO SCH ×4 (09:30→20:00)
[2021-02-05 09:38] VITALS: BP 124/79
[2021-02-05 11:29] LABS: GLUCOMETER DEV NAME(LOC) BV2S.; GLUCOSE,POINT OF CARE 344 MG/DL (70-110)
[2021-02-05 16:12] VITALS: BP 116/63
[2021-02-05 17:51] LABS: GLUCOMETER DEV NAME(LOC) BV2S.; GLUCOSE,POINT OF CARE 345 MG/DL (70-110)
[2021-02-05] MEDS: QUEtiapine FUMARATE 300 MG TABLET PO SCH (20:00)
[2021-02-05] MEDS: SIMVASTATIN 40 MG TABLET PO SCH (20:01)
[2021-02-05 20:18] LABS: GLUCOMETER DEV NAME(LOC) BV2S.; GLUCOSE,POINT OF CARE 373 MG/DL (70-110)
[2021-02-05] MEDS: ZOLPIDEM TARTRATE 10 MG TABLET PO PRN (20:50)
[2021-02-06 00:30] VITALS: BP 133/84
[2021-02-06] MEDS: IBUPROFEN 400 MG TABLET PO PRN (00:34)
[2021-02-06 06:43] LABS: GLUCOMETER DEV NAME(LOC) BV2S.; GLUCOSE,POINT OF CARE 296 MG/DL (70-110)
[2021-02-06] MEDS: INSULIN LISPRO 100 UNITS/ML SQ PRN ×3 (06:51→21:17)
[2021-02-06 08:46] VITALS: BP 142/85
[2021-02-06] MEDS: ASPIRIN 81 MG CHEWABLE TABLET PO SCH (08:48)
[2021-02-06] MEDS: QUEtiapine FUMARATE 100 MG TABLET PO SCH (08:48)
[2021-02-06] MEDS: HYDROCHLOROTHIAZIDE 25 MG TABLET PO SCH (08:48)
[2021-02-06] MEDS: GABAPENTIN 400 MG CAPSULE PO SCH ×4 (08:48→20:18)
[2021-02-06] MEDS: LOSARTAN POTASSIUM 50 MG TABLET PO SCH (08:48)
[2021-02-06] MEDS: PETROLATUM,WHITE 28 GM JELLY TP SCH (08:49)
[2021-02-06] MEDS: INSULIN GLARGINE,HUM.REC.ANLOG 100 UNITS/ML SQ SCH ×2 (08:53→17:28)
[2021-02-06] MEDS ORDERED: INSULIN LISPRO 100 UNITS/ML SQ ONE ×2 (11:45→14:45)
[2021-02-06 12:06] LABS: GLUCOMETER DEV NAME(LOC) BV2S.; GLUCOSE,POINT OF CARE 477 MG/DL (70-110)
[2021-02-06 12:06] LABS: GLUCOMETER DEV NAME(LOC) BV2S.; GLUCOSE,POINT OF CARE 400 MG/DL (70-110)
[2021-02-06 14:34] LABS: GLUCOMETER DEV NAME(LOC) BV2S.; GLUCOSE,POINT OF CARE 346 MG/DL (70-110)
[2021-02-06 16:15] VITALS: BP 147/86
[2021-02-06 17:11] LABS: GLUCOMETER DEV NAME(LOC) BV2S.; GLUCOSE,POINT OF CARE 194 MG/DL (70-110)
[2021-02-06] MEDS: SIMVASTATIN 40 MG TABLET PO SCH (20:18)
[2021-02-06] MEDS: QUEtiapine FUMARATE 300 MG TABLET PO SCH (20:18)
[2021-02-06] MEDS: ZOLPIDEM TARTRATE 10 MG TABLET PO PRN (20:25)
[2021-02-06 20:41] LABS: GLUCOMETER DEV NAME(LOC) BV2S.; GLUCOSE,POINT OF CARE 263 MG/DL (70-110)
[2021-02-07 00:29] VITALS: BP 123/86
[2021-02-07 06:34] LABS: GLUCOMETER DEV NAME(LOC) BV2S.; GLUCOSE,POINT OF CARE 194 MG/DL (70-110)
[2021-02-07] MEDS: INSULIN LISPRO 100 UNITS/ML SQ PRN ×3 (06:56→16:47)
[2021-02-07 08:18] VITALS: BP 140/86
[2021-02-07] MEDS: QUEtiapine FUMARATE 100 MG TABLET PO SCH (08:33)
[2021-02-07] MEDS: LOSARTAN POTASSIUM 50 MG TABLET PO SCH (08:33)
[2021-02-07] MEDS: ASPIRIN 81 MG CHEWABLE TABLET PO SCH (08:33)
[2021-02-07] MEDS: HYDROCHLOROTHIAZIDE 25 MG TABLET PO SCH (08:33)
[2021-02-07] MEDS: GABAPENTIN 400 MG CAPSULE PO SCH ×4 (08:33→20:25)
[2021-02-07] MEDS: INSULIN GLARGINE,HUM.REC.ANLOG 100 UNITS/ML SQ SCH ×2 (08:38→16:47)
[2021-02-07] MEDS: PETROLATUM,WHITE 28 GM JELLY TP SCH (08:39)
[2021-02-07 11:29] LABS: GLUCOMETER DEV NAME(LOC) BV2S.; GLUCOSE,POINT OF CARE 266 MG/DL (70-110)
[2021-02-07 16:17] VITALS: BP 123/87
[2021-02-07 16:39] LABS: GLUCOMETER DEV NAME(LOC) BV2S.; GLUCOSE,POINT OF CARE 291 MG/DL (70-110)
[2021-02-07] MEDS ORDERED: INSULIN LISPRO 100 UNITS/ML SQ ONE ×2 (20:15→21:45)
[2021-02-07] MEDS: SIMVASTATIN 40 MG TABLET PO SCH (20:25)
[2021-02-07] MEDS: QUEtiapine FUMARATE 300 MG TABLET PO SCH (20:25)
[2021-02-07 20:36] LABS: GLUCOMETER DEV NAME(LOC) BV2S.; GLUCOSE,POINT OF CARE 414 MG/DL (70-110)
[2021-02-07] MEDS ORDERED: INSULIN GLARGINE,HUM.REC.ANLOG 100 UNITS/ML SQ ONE (21:45)
[2021-02-07 22:53] LABS: GLUCOMETER DEV NAME(LOC) BV2S.; GLUCOSE,POINT OF CARE 405 MG/DL (70-110)
[2021-02-07 22:53] LABS: GLUCOMETER DEV NAME(LOC) BV2S.; GLUCOSE,POINT OF CARE 313 MG/DL (70-110)
[2021-02-08 00:17] VITALS: BP 140/81
[2021-02-08] MEDS: ZOLPIDEM TARTRATE 10 MG TABLET PO PRN (02:07)
[2021-02-08 06:09] LABS: GLUCOMETER DEV NAME(LOC) BV2S.; GLUCOSE,POINT OF CARE 199 MG/DL (70-110)
[2021-02-08] MEDS: INSULIN LISPRO 100 UNITS/ML SQ PRN ×4 (06:45→20:28)
[2021-02-08 08:24] VITALS: BP 161/84
[2021-02-08] MEDS: GABAPENTIN 400 MG CAPSULE PO SCH ×4 (08:36→20:25)
[2021-02-08] MEDS: QUEtiapine FUMARATE 100 MG TABLET PO SCH (08:36)
[2021-02-08] MEDS: LOSARTAN POTASSIUM 50 MG TABLET PO SCH (08:36)
[2021-02-08] MEDS: ASPIRIN 81 MG CHEWABLE TABLET PO SCH (08:36)
[2021-02-08] MEDS: HYDROCHLOROTHIAZIDE 25 MG TABLET PO SCH (08:36)
[2021-02-08] MEDS: PETROLATUM,WHITE 28 GM JELLY TP SCH (08:41)
[2021-02-08] MEDS: INSULIN GLARGINE,HUM.REC.ANLOG 100 UNITS/ML SQ SCH ×2 (08:43→16:36)
[2021-02-08 09:43] VITALS: BP 138/80
[2021-02-08 11:11] LABS: GLUCOMETER DEV NAME(LOC) BV2S.; GLUCOSE,POINT OF CARE 218 MG/DL (70-110)
[2021-02-08 16:14] VITALS: BP 131/73
[2021-02-08 17:14] LABS: GLUCOMETER DEV NAME(LOC) BV2S.; GLUCOSE,POINT OF CARE 208 MG/DL (70-110)
[2021-02-08] MEDS: QUEtiapine FUMARATE 300 MG TABLET PO SCH (20:24)
[2021-02-08] MEDS: SIMVASTATIN 40 MG TABLET PO SCH (20:24)
[2021-02-08 21:12] LABS: GLUCOMETER DEV NAME(LOC) BV2S.; GLUCOSE,POINT OF CARE 195 MG/DL (70-110)
[2021-02-09] MEDS: IBUPROFEN 400 MG TABLET PO PRN (00:05)
[2021-02-09 00:15] VITALS: BP 136/70
[2021-02-09 06:07] LABS: GLUCOMETER DEV NAME(LOC) BV2S.; GLUCOSE,POINT OF CARE 158 MG/DL (70-110)
[2021-02-09] MEDS: INSULIN LISPRO 100 UNITS/ML SQ PRN ×4 (06:39→21:32)
[2021-02-09 08:57] VITALS: BP 137/79
[2021-02-09] MEDS: ASPIRIN 81 MG CHEWABLE TABLET PO SCH (09:12)
[2021-02-09] MEDS: QUEtiapine FUMARATE 100 MG TABLET PO SCH (09:12)
[2021-02-09] MEDS: LOSARTAN POTASSIUM 50 MG TABLET PO SCH (09:12)
[2021-02-09] MEDS: HYDROCHLOROTHIAZIDE 25 MG TABLET PO SCH (09:12)
[2021-02-09] MEDS: GABAPENTIN 400 MG CAPSULE PO SCH ×4 (09:13→20:56)
[2021-02-09] MEDS: PETROLATUM,WHITE 28 GM JELLY TP SCH (09:19)
[2021-02-09] MEDS: INSULIN GLARGINE,HUM.REC.ANLOG 100 UNITS/ML SQ SCH ×2 (09:22→17:23)
[2021-02-09 09:30] LABS: GLUCOMETER DEV NAME(LOC) BV2S.; GLUCOSE,POINT OF CARE 273 MG/DL (70-110)
[2021-02-09 11:19] LABS: GLUCOMETER DEV NAME(LOC) BV2S.; GLUCOSE,POINT OF CARE 247 MG/DL (70-110)
[2021-02-09 16:17] VITALS: BP 114/70
[2021-02-09 16:43] LABS: GLUCOMETER DEV NAME(LOC) BV2S.; GLUCOSE,POINT OF CARE 343 MG/DL (70-110)
[2021-02-09] MEDS: SIMVASTATIN 40 MG TABLET PO SCH (20:55)
[2021-02-09] MEDS: QUEtiapine FUMARATE 300 MG TABLET PO SCH (20:56)
[2021-02-09 21:31] LABS: GLUCOMETER DEV NAME(LOC) BV2S.; GLUCOSE,POINT OF CARE 253 MG/DL (70-110)
[2021-02-10 00:15] VITALS: BP 125/74
[2021-02-10] MEDS: HALOPERIDOL 5 MG TABLET PO PRN (00:22)
[2021-02-10] MEDS: INSULIN LISPRO 100 UNITS/ML SQ PRN ×4 (06:34→20:28)
[2021-02-10 06:40] LABS: GLUCOMETER DEV NAME(LOC) BV2S.; GLUCOSE,POINT OF CARE 196 MG/DL (70-110)
[2021-02-10 07:23] LABS: COVID AG,FIA SOURCE NASOPHARYNGEAL
[2021-02-10 09:21] VITALS: BP 128/77
[2021-02-10] MEDS: QUEtiapine FUMARATE 100 MG TABLET PO SCH (09:28)
[2021-02-10] MEDS: HYDROCHLOROTHIAZIDE 25 MG TABLET PO SCH (09:28)
[2021-02-10] MEDS: GABAPENTIN 400 MG CAPSULE PO SCH ×4 (09:28→20:26)
[2021-02-10] MEDS: LOSARTAN POTASSIUM 50 MG TABLET PO SCH (09:28)
[2021-02-10] MEDS: ASPIRIN 81 MG CHEWABLE TABLET PO SCH (09:28)
[2021-02-10] MEDS: PETROLATUM,WHITE 28 GM JELLY TP SCH (09:29)
[2021-02-10] MEDS: INSULIN GLARGINE,HUM.REC.ANLOG 100 UNITS/ML SQ SCH ×2 (09:37→16:14)
[2021-02-10 10:52] LABS: GLUCOMETER DEV NAME(LOC) BV2S.; GLUCOSE,POINT OF CARE 311 MG/DL (70-110)
[2021-02-10 16:10] VITALS: BP 123/76
[2021-02-10 16:26] LABS: GLUCOMETER DEV NAME(LOC) BV2S.; GLUCOSE,POINT OF CARE 325 MG/DL (70-110)
[2021-02-10] MEDS: SIMVASTATIN 40 MG TABLET PO SCH (20:26)
[2021-02-10] MEDS: QUEtiapine FUMARATE 300 MG TABLET PO SCH (20:26)
[2021-02-10 20:52] VITALS: BP 140/76
[2021-02-10] MEDS: IBUPROFEN 400 MG TABLET PO PRN (20:55)
[2021-02-10 22:00] LABS: GLUCOMETER DEV NAME(LOC) BV2S.; GLUCOSE,POINT OF CARE 322 MG/DL (70-110)
[2021-02-11 00:03] VITALS: BP 127/75
[2021-02-11] MEDS: HALOPERIDOL 5 MG TABLET PO PRN (00:09)
[2021-02-11 06:16] LABS: GLUCOMETER DEV NAME(LOC) BV2S.; GLUCOSE,POINT OF CARE 214 MG/DL (70-110)
[2021-02-11] MEDS: INSULIN LISPRO 100 UNITS/ML SQ PRN ×3 (06:55→16:46)
[2021-02-11 08:43] VITALS: BP 155/89
[2021-02-11] MEDS: HYDROCHLOROTHIAZIDE 25 MG TABLET PO SCH (09:01)
[2021-02-11] MEDS: ASPIRIN 81 MG CHEWABLE TABLET PO SCH (09:01)
[2021-02-11] MEDS: GABAPENTIN 400 MG CAPSULE PO SCH ×3 (09:01→16:44)
[2021-02-11] MEDS: QUEtiapine FUMARATE 100 MG TABLET PO SCH (09:01)
[2021-02-11] MEDS: LOSARTAN POTASSIUM 50 MG TABLET PO SCH (09:01)
[2021-02-11] MEDS: PETROLATUM,WHITE 28 GM JELLY TP SCH (09:02)
[2021-02-11] MEDS: INSULIN GLARGINE,HUM.REC.ANLOG 100 UNITS/ML SQ SCH ×2 (09:11→16:46)
[2021-02-11 09:18] LABS: GLUCOMETER DEV NAME(LOC) BV2S.; GLUCOSE,POINT OF CARE 229 MG/DL (70-110)
[2021-02-11 11:38] LABS: GLUCOMETER DEV NAME(LOC) BV2S.; GLUCOSE,POINT OF CARE 214 MG/DL (70-110)
[2021-02-11] MEDS ORDERED: GABA-1201 PO (13:12)
[2021-02-11] MEDS ORDERED: QUET300T2 PO (13:13)
[2021-02-11] MEDS ORDERED: QUET100T PO (13:13)
[2021-02-11] MEDS ORDERED: SIMV-261 PO (13:14)
[2021-02-11] MEDS ORDERED: ASPI-1450 PO (13:15)
[2021-02-11] MEDS ORDERED: LOSA50TA37 PO (13:18)
[2021-02-11] MEDS ORDERED: HYDR25TA2 PO (13:18)
[2021-02-11] MEDS ORDERED: INSLAN SQ (13:19)
[2021-02-11 16:32] VITALS: BP 135/79
[2021-02-11 17:32] LABS: GLUCOMETER DEV NAME(LOC) BV2S.; GLUCOSE,POINT OF CARE 304 MG/DL (70-110)
== END 2021-02-11 16:30 | disposition home or self-care (01) | DRG 753 ==
LOC: B2S 22:17
PROVIDERS: ADMIT Psychiatry & Neurology Psychiatry; ATTEND Psychiatry & Neurology Psychiatry
DX: F31.4 Bipolar disorder, current episode depressed, severe, without psychotic features (principal); R45.850 Homicidal ideations; Z20.822 Contact with and (suspected) exposure to COVID-19; I10 Essential (primary) hypertension; E11.9 Type 2 diabetes mellitus without complications; G40.909 Epilepsy, unspecified, not intractable, without status epilepticus; J44.9 Chronic obstructive pulmonary disease, unspecified; Z88.8 Allergy status to other drugs, medicaments and biological substances
CPT/HCPCS: 80053; 80061; 80307; 81001; 82962; 83036; 84439; 84443; 85025; J1815

== ENCOUNTER 2021-02-16 19:59 | Inpatient (IN) | payer MEDICAID ==
[~2021-02-16] VITALS: Ht 170.2 cm; Wt 83.0 kg
[~2021-02-16 19:59] MED LIST changes: +HYDR25TA2 PO; +INSLAN SQ
[2021-02-16 20:33] LABS: GLUCOSE,POINT OF CARE 295 MG/DL (70-110)
[2021-02-16 20:35] LABS: BASOPHILS % (AUTO) 0.8 % (0.0-2.0); EOSINOPHILS % (AUTO) 2.6 % (1.0-6.0); HEMATOCRIT 43.5 % (41-53); HEMOGLOBIN 14.3 g/dL (13.5-17.5); LYMPHOCYTES % (AUTO) 26.8 % (22.0-44.0); MEAN CORPUSCULAR HEMOGLOBIN 27.6 pg (26.0-34.0); MEAN CORPUSCULAR VOLUME 84 fL (80-100); MONOCYTES # (AUTO) 0.6 K/uL (0.1-1.0); MONOCYTES % (AUTO) 7.9 % (2.0-9.0); NEUTROPHILS # (AUTO) 4.7 K/uL (1.8-7.7); NEUTROPHILS % (AUTO) 61.9 % (40.0-70.0); PLATELET COUNT (AUTO) 204 K/uL (150-450); RED CELL DISTRIBUTION WIDTH 15.3 % (11.5-14.5)
[2021-02-16 20:45] LABS: ANION GAP 9 mmol/L (8-16); CALCIUM, TOTAL 9.1 mg/dL (8.8-10.5); CARBON DIOXIDE 28 mmol/L (22-29); CHLORIDE 103 mmol/L (98-107); CREATININE 1.34 mg/dL (0.60-1.30); GLOMERULAR FILTR. RATE CALC 54 mL/min (>60); GLUCOSE,RANDOM 276 mg/dL (70-110); POTASSIUM 4.5 mmol/L (3.5-5.1); SODIUM SERUM 140 mmol/L (136-145); UREA NITROGEN, BLOOD 50 mg/dL (7-18)
[2021-02-16 20:50] LABS: ALANINE AMINOTRANSFERASE 60 U/L (12-78); ALBUMIN 3.9 g/dL (3.4-5.0); ALKALINE PHOSPHATASE 87 U/L (46-116); ASPARTATE AMINOTRANSFERASE 49 U/L (15-37); BILIRUBIN,TOTAL 0.6 mg/dL (0.1-1.0); TOTAL PROTEIN, SERUM 7.9 g/dL (6.4-8.2)
[2021-02-16 21:56] LABS: COVID AG,FIA SOURCE NASOPHARYNGEAL
[2021-02-17] MEDS ORDERED: PNEUMOCOCCAL VACCINE POLYVALENT 0.5 ML VIAL [PPSV23] IM. ONE (01:15)
[2021-02-17 01:19] VITALS: BP 129/78
[2021-02-17 01:43] VITALS: BP 129/78
[2021-02-17 07:20] LABS: CHOL/HDL RATIO 2.8 (4.2-7.3)
[2021-02-17 08:00] VITALS: BP 151/86
[2021-02-17] MEDS ORDERED: DEXTROSE 50%-WATER 25 GM/50 ML SYRINGE IVP PRN (09:15)
[2021-02-17] MEDS: LOSARTAN POTASSIUM 50 MG TABLET PO SCH (09:30)
[2021-02-17] MEDS: ASPIRIN 81 MG DR TABLET PO SCH (09:30)
[2021-02-17] MEDS: HYDROCHLOROTHIAZIDE 25 MG TABLET PO SCH (09:30)
[2021-02-17] MEDS: INSULIN GLARGINE,HUM.REC.ANLOG 100 UNITS/ML SQ SCH (09:31)
[2021-02-17 09:42] LABS: GLUCOMETER DEV NAME(LOC) 3E.I 2; GLUCOSE,POINT OF CARE 245 MG/DL (70-110)
[2021-02-17] MEDS ORDERED: ACETAMINOPHEN 325 MG TABLET PO PRN ×2 (09:45→15:15)
[2021-02-17] MEDS: LORazepam 2 MG TABLET PO PRN (09:50)
[2021-02-17 12:08] LABS: GLUCOMETER DEV NAME(LOC) 3E.I 2; GLUCOSE,POINT OF CARE 192 MG/DL (70-110)
[2021-02-17] MEDS: INSULIN LISPRO 100 UNITS/ML SQ PRN ×3 (12:09→21:12)
[2021-02-17] MEDS: BuPROPion HCL XL 150 MG ER TABLET PO SCH (13:14)
[2021-02-17] MEDS: GABAPENTIN 400 MG CAPSULE PO SCH ×3 (13:14→20:34)
[2021-02-17] MEDS ORDERED: CloNIDine HCL 0.1 MG TABLET PO PRN (15:15)
[2021-02-17] MEDS ORDERED: ALBUTEROL SULFATE HFA 90 MCG/PUFF 8 GM INHALER IH PRN (15:15)
[2021-02-17] MEDS ORDERED: MAGNESIUM HYDROXIDE SUSPENSION 30 ML UDCUP PO PRN (15:15)
[2021-02-17] MEDS ORDERED: ONDANSETRON HCL 4 MG TABLET PO PRN (15:15)
[2021-02-17] MEDS ORDERED: PETROLATUM,WHITE 28 GM JELLY TP PRN (15:15)
[2021-02-17] MEDS ORDERED: DOCUSATE SODIUM 100 MG CAPSULE PO PRN (15:15)
[2021-02-17] MEDS ORDERED: MAG HYDROX/AL HYDROX/SIMETH ES 30 ML SUSPENSION UDCUP PO PRN (15:15)
[2021-02-17] MEDS ORDERED: LOPERAMIDE HCL 2 MG CAPSULE PO PRN (15:15)
[2021-02-17] MEDS ORDERED: NICOTINE 14 MG/24 HOUR PATCH TD PRN (15:15)
[2021-02-17] MEDS: OLANZapine 5 MG TABLET PO SCH (16:10)
[2021-02-17 16:53] VITALS: BP 132/80
[2021-02-17 16:53] LABS: GLUCOMETER DEV NAME(LOC) 3E.I 2; GLUCOSE,POINT OF CARE 191 MG/DL (70-110)
[2021-02-17] MEDS: SIMVASTATIN 40 MG TABLET PO SCH (20:35)
[2021-02-17 21:07] LABS: GLUCOMETER DEV NAME(LOC) 3E.I 2; GLUCOSE,POINT OF CARE 163 MG/DL (70-110)
[2021-02-18 05:45] LABS: GLUCOMETER DEV NAME(LOC) 3E.I 2; GLUCOSE,POINT OF CARE 168 MG/DL (70-110)
[2021-02-18] MEDS: INSULIN LISPRO 100 UNITS/ML SQ PRN ×4 (06:55→21:10)
[2021-02-18 08:21] VITALS: BP 150/70
[2021-02-18] MEDS: ASPIRIN 81 MG DR TABLET PO SCH (08:53)
[2021-02-18] MEDS: LOSARTAN POTASSIUM 50 MG TABLET PO SCH (08:53)
[2021-02-18] MEDS: BuPROPion HCL XL 150 MG ER TABLET PO SCH (08:53)
[2021-02-18] MEDS: HYDROCHLOROTHIAZIDE 25 MG TABLET PO SCH (08:53)
[2021-02-18] MEDS: GABAPENTIN 400 MG CAPSULE PO SCH ×4 (08:53→20:19)
[2021-02-18] MEDS: OLANZapine 5 MG TABLET PO SCH ×2 (08:53→16:15)
[2021-02-18] MEDS: INSULIN GLARGINE,HUM.REC.ANLOG 100 UNITS/ML SQ SCH (09:21)
[2021-02-18 09:32] LABS: GLUCOMETER DEV NAME(LOC) 3E.I 2; GLUCOSE,POINT OF CARE 195 MG/DL (70-110)
[2021-02-18 11:53] LABS: GLUCOMETER DEV NAME(LOC) 3E.I 2; GLUCOSE,POINT OF CARE 199 MG/DL (70-110)
[2021-02-18 16:40] VITALS: BP 122/84
[2021-02-18 17:05] LABS: GLUCOMETER DEV NAME(LOC) 3E.I 2; GLUCOSE,POINT OF CARE 274 MG/DL (70-110)
[2021-02-18] MEDS: SIMVASTATIN 40 MG TABLET PO SCH (20:19)
[2021-02-18] MEDS: ZOLPIDEM TARTRATE 10 MG TABLET PO PRN (20:45)
[2021-02-18 21:00] LABS: GLUCOMETER DEV NAME(LOC) 3E.I 2; GLUCOSE,POINT OF CARE 237 MG/DL (70-110)
[2021-02-19] MEDS: LORazepam 2 MG TABLET PO PRN ×2 (01:51→22:32)
[2021-02-19] MEDS: GuaiFENesin/D-METHORPHAN [SUGAR-FREE] 200-20MG/10 ML SYRUP UDCUP PO PRN (01:51)
[2021-02-19 01:55] VITALS: BP 131/82
[2021-02-19 06:18] LABS: GLUCOMETER DEV NAME(LOC) 3E.I 2; GLUCOSE,POINT OF CARE 221 MG/DL (70-110)
[2021-02-19] MEDS: INSULIN LISPRO 100 UNITS/ML SQ PRN ×3 (06:55→21:48)
[2021-02-19 08:00] VITALS: BP 128/68
[2021-02-19] MEDS: OLANZapine 5 MG TABLET PO SCH ×2 (08:58→16:41)
[2021-02-19] MEDS: GABAPENTIN 400 MG CAPSULE PO SCH ×4 (08:59→21:01)
[2021-02-19] MEDS: HYDROCHLOROTHIAZIDE 25 MG TABLET PO SCH (08:59)
[2021-02-19] MEDS: ASPIRIN 81 MG DR TABLET PO SCH (09:00)
[2021-02-19] MEDS: BuPROPion HCL XL 150 MG ER TABLET PO SCH (09:00)
[2021-02-19] MEDS: LOSARTAN POTASSIUM 50 MG TABLET PO SCH (09:00)
[2021-02-19] MEDS: INSULIN GLARGINE,HUM.REC.ANLOG 100 UNITS/ML SQ SCH (09:05)
[2021-02-19 11:22] LABS: GLUCOMETER DEV NAME(LOC) 3E.I 2; GLUCOSE,POINT OF CARE 213 MG/DL (70-110)
[2021-02-19 16:17] VITALS: BP 127/76
[2021-02-19 16:44] LABS: GLUCOMETER DEV NAME(LOC) 3E.I 2; GLUCOSE,POINT OF CARE 297 MG/DL (70-110)
[2021-02-19 20:16] LABS: GLUCOMETER DEV NAME(LOC) 3E.I 2; GLUCOSE,POINT OF CARE 170 MG/DL (70-110)
[2021-02-19] MEDS: HALOPERIDOL 5 MG TABLET PO PRN (21:01)
[2021-02-19] MEDS: SIMVASTATIN 40 MG TABLET PO SCH (21:01)
[2021-02-19] MEDS: ZOLPIDEM TARTRATE 10 MG TABLET PO PRN (22:32)
[2021-02-20 03:25] VITALS: BP 150/93
[2021-02-20 05:24] LABS: GLUCOMETER DEV NAME(LOC) 3E.I 2; GLUCOSE,POINT OF CARE 289 MG/DL (70-110)
[2021-02-20] MEDS: INSULIN LISPRO 100 UNITS/ML SQ PRN ×4 (07:00→21:22)
[2021-02-20 07:03] LABS: ANION GAP 6 mmol/L (8-16); CALCIUM, TOTAL 8.5 mg/dL (8.8-10.5); CARBON DIOXIDE 27 mmol/L (22-29); CHLORIDE 106 mmol/L (98-107); CREATININE 0.94 mg/dL (0.60-1.30); GLOMERULAR FILTR. RATE CALC > 60 mL/min (>60); GLUCOSE,RANDOM 254 mg/dL (70-110); POTASSIUM 4.3 mmol/L (3.5-5.1); SODIUM SERUM 139 mmol/L (136-145); UREA NITROGEN, BLOOD 28 mg/dL (7-18)
[2021-02-20] MEDS: OLANZapine 5 MG TABLET PO SCH ×2 (09:12→16:29)
[2021-02-20] MEDS: LOSARTAN POTASSIUM 50 MG TABLET PO SCH (09:12)
[2021-02-20] MEDS: ASPIRIN 81 MG DR TABLET PO SCH (09:12)
[2021-02-20] MEDS: HYDROCHLOROTHIAZIDE 25 MG TABLET PO SCH (09:12)
[2021-02-20] MEDS: BuPROPion HCL XL 150 MG ER TABLET PO SCH (09:12)
[2021-02-20] MEDS: GABAPENTIN 400 MG CAPSULE PO SCH ×4 (09:13→20:45)
[2021-02-20] MEDS: INSULIN GLARGINE,HUM.REC.ANLOG 100 UNITS/ML SQ SCH (09:27)
[2021-02-20 09:42] VITALS: BP 145/63
[2021-02-20] MEDS ORDERED: BuPROPion HCL XL 150 MG ER TABLET PO ONE (10:00)
[2021-02-20 11:29] LABS: GLUCOMETER DEV NAME(LOC) 3E.I 2; GLUCOSE,POINT OF CARE 170 MG/DL (70-110)
[2021-02-20 16:58] LABS: GLUCOMETER DEV NAME(LOC) 3E.I 2; GLUCOSE,POINT OF CARE 273 MG/DL (70-110)
[2021-02-20 17:41] VITALS: BP 115/72
[2021-02-20] MEDS: SIMVASTATIN 40 MG TABLET PO SCH (20:46)
[2021-02-20 21:08] LABS: GLUCOMETER DEV NAME(LOC) 3E.I 2; GLUCOSE,POINT OF CARE 358 MG/DL (70-110)
[2021-02-20] MEDS: ZOLPIDEM TARTRATE 10 MG TABLET PO PRN (21:22)
[2021-02-20] MEDS: LORazepam 2 MG TABLET PO PRN (23:12)
[2021-02-21] VITALS (7 sets, daily range): BP systolic 110–172; BP diastolic 60–96
[2021-02-21 07:09] LABS: GLUCOMETER DEV NAME(LOC) 3E.I 2; GLUCOSE,POINT OF CARE 271 MG/DL (70-110)
[2021-02-21] MEDS: INSULIN LISPRO 100 UNITS/ML SQ PRN ×4 (07:10→20:29)
[2021-02-21] MEDS: GABAPENTIN 400 MG CAPSULE PO SCH ×4 (09:19→20:21)
[2021-02-21] MEDS: BuPROPion HCL XL 150 MG ER TABLET PO SCH (09:20)
[2021-02-21] MEDS: ASPIRIN 81 MG DR TABLET PO SCH (09:21)
[2021-02-21] MEDS: HYDROCHLOROTHIAZIDE 25 MG TABLET PO SCH (09:21)
[2021-02-21] MEDS: LOSARTAN POTASSIUM 50 MG TABLET PO SCH (09:21)
[2021-02-21] MEDS: OLANZapine 5 MG TABLET PO SCH ×2 (09:22→16:02)
[2021-02-21] MEDS: INSULIN GLARGINE,HUM.REC.ANLOG 100 UNITS/ML SQ SCH (09:40)
[2021-02-21] MEDS: LORazepam 2 MG TABLET PO PRN (09:43)
[2021-02-21 09:46] LABS: GLUCOMETER DEV NAME(LOC) 3E.I 2; GLUCOSE,POINT OF CARE 375 MG/DL (70-110)
[2021-02-21 11:53] LABS: GLUCOMETER DEV NAME(LOC) 3E.I 2; GLUCOSE,POINT OF CARE 360 MG/DL (70-110)
[2021-02-21] MEDS: GuaiFENesin/D-METHORPHAN [SUGAR-FREE] 200-20MG/10 ML SYRUP UDCUP PO PRN (16:02)
[2021-02-21 16:16] LABS: GLUCOMETER DEV NAME(LOC) 3E.I 2; GLUCOSE,POINT OF CARE 297 MG/DL (70-110)
[2021-02-21] MEDS: SIMVASTATIN 40 MG TABLET PO SCH (20:22)
[2021-02-21] MEDS: ZOLPIDEM TARTRATE 10 MG TABLET PO PRN (20:23)
[2021-02-21 20:37] LABS: GLUCOMETER DEV NAME(LOC) 3E.I 2; GLUCOSE,POINT OF CARE 379 MG/DL (70-110)
[2021-02-22 03:07] VITALS: BP 128/92
[2021-02-22] MEDS: IBUPROFEN 400 MG TABLET PO PRN (03:07)
[2021-02-22] MEDS: LORazepam 2 MG TABLET PO PRN ×2 (03:07→14:01)
[2021-02-22 06:27] LABS: GLUCOMETER DEV NAME(LOC) 3E.I 2; GLUCOSE,POINT OF CARE 340 MG/DL (70-110)
[2021-02-22] MEDS: INSULIN LISPRO 100 UNITS/ML SQ PRN ×4 (06:56→21:16)
[2021-02-22 09:18] VITALS: BP 164/101
[2021-02-22] MEDS: GABAPENTIN 400 MG CAPSULE PO SCH ×4 (09:18→20:00)
[2021-02-22] MEDS: ASPIRIN 81 MG DR TABLET PO SCH (09:18)
[2021-02-22] MEDS: OLANZapine 5 MG TABLET PO SCH ×2 (09:18→16:23)
[2021-02-22] MEDS: LOSARTAN POTASSIUM 50 MG TABLET PO SCH (09:19)
[2021-02-22] MEDS: HYDROCHLOROTHIAZIDE 25 MG TABLET PO SCH (09:19)
[2021-02-22] MEDS: BuPROPion HCL XL 150 MG ER TABLET PO SCH (09:19)
[2021-02-22] MEDS: INSULIN GLARGINE,HUM.REC.ANLOG 100 UNITS/ML SQ SCH (09:36)
[2021-02-22 09:42] LABS: GLUCOMETER DEV NAME(LOC) 3E.I 2; GLUCOSE,POINT OF CARE 354 MG/DL (70-110)
[2021-02-22 11:32] LABS: GLUCOMETER DEV NAME(LOC) 3E.I 2; GLUCOSE,POINT OF CARE 271 MG/DL (70-110)
[2021-02-22 14:27] LABS: COVID AG,FIA SOURCE NASAL SWAB
[2021-02-22 16:00] VITALS: BP 91/54
[2021-02-22 16:46] LABS: GLUCOMETER DEV NAME(LOC) 3E.I 2; GLUCOSE,POINT OF CARE 261 MG/DL (70-110)
[2021-02-22] MEDS: SIMVASTATIN 40 MG TABLET PO SCH (20:00)
[2021-02-22 20:15] LABS: GLUCOMETER DEV NAME(LOC) 3E.I 2; GLUCOSE,POINT OF CARE 317 MG/DL (70-110)
[2021-02-22] MEDS: ZOLPIDEM TARTRATE 10 MG TABLET PO PRN (20:28)
[2021-02-23 01:45] VITALS: BP 121/78
[2021-02-23 05:53] LABS: GLUCOMETER DEV NAME(LOC) 3E.I 2; GLUCOSE,POINT OF CARE 283 MG/DL (70-110)
[2021-02-23] MEDS: INSULIN LISPRO 100 UNITS/ML SQ PRN ×4 (06:36→20:28)
[2021-02-23] MEDS: HYDROCHLOROTHIAZIDE 25 MG TABLET PO SCH (08:11)
[2021-02-23] MEDS: LOSARTAN POTASSIUM 50 MG TABLET PO SCH (08:11)
[2021-02-23] MEDS: BuPROPion HCL XL 150 MG ER TABLET PO SCH (08:11)
[2021-02-23] MEDS: GABAPENTIN 400 MG CAPSULE PO SCH ×4 (08:11→20:03)
[2021-02-23] MEDS: ASPIRIN 81 MG DR TABLET PO SCH (08:11)
[2021-02-23] MEDS: OLANZapine 5 MG TABLET PO SCH ×2 (08:12→16:24)
[2021-02-23 08:45] VITALS: BP 130/75
[2021-02-23] MEDS: INSULIN GLARGINE,HUM.REC.ANLOG 100 UNITS/ML SQ SCH (08:45)
[2021-02-23 11:35] LABS: GLUCOMETER DEV NAME(LOC) 3E.I 2; GLUCOSE,POINT OF CARE 259 MG/DL (70-110)
[2021-02-23 16:00] VITALS: BP 132/82
[2021-02-23 16:43] LABS: GLUCOMETER DEV NAME(LOC) 3E.I 2; GLUCOSE,POINT OF CARE 359 MG/DL (70-110)
[2021-02-23] MEDS: SIMVASTATIN 40 MG TABLET PO SCH (20:04)
[2021-02-23 20:14] LABS: GLUCOMETER DEV NAME(LOC) 3E.I 2; GLUCOSE,POINT OF CARE 332 MG/DL (70-110)
[2021-02-23] MEDS: ZOLPIDEM TARTRATE 10 MG TABLET PO PRN (21:02)
[2021-02-24 06:37] LABS: GLUCOMETER DEV NAME(LOC) 3E.I 2; GLUCOSE,POINT OF CARE 287 MG/DL (70-110)
[2021-02-24] MEDS: INSULIN LISPRO 100 UNITS/ML SQ PRN ×4 (06:50→21:57)
[2021-02-24] MEDS: GABAPENTIN 400 MG CAPSULE PO SCH ×4 (08:25→21:14)
[2021-02-24] MEDS: ASPIRIN 81 MG DR TABLET PO SCH (08:25)
[2021-02-24] MEDS: BuPROPion HCL XL 150 MG ER TABLET PO SCH (08:25)
[2021-02-24] MEDS: LOSARTAN POTASSIUM 50 MG TABLET PO SCH (08:25)
[2021-02-24] MEDS: OLANZapine 5 MG TABLET PO SCH ×2 (08:25→17:22)
[2021-02-24] MEDS: HYDROCHLOROTHIAZIDE 25 MG TABLET PO SCH (08:25)
[2021-02-24] MEDS: INSULIN GLARGINE,HUM.REC.ANLOG 100 UNITS/ML SQ SCH (08:33)
[2021-02-24 11:35] LABS: GLUCOMETER DEV NAME(LOC) 3E.I 2; GLUCOSE,POINT OF CARE 253 MG/DL (70-110)
[2021-02-24] MEDS: IBUPROFEN 400 MG TABLET PO PRN ×2 (14:11→22:41)
[2021-02-24 16:00] VITALS: BP 135/99
[2021-02-24 17:10] LABS: GLUCOMETER DEV NAME(LOC) 3E.I 2; GLUCOSE,POINT OF CARE 334 MG/DL (70-110)
[2021-02-24] MEDS: MetFORMIN HCL 500 MG TABLET PO SCH (17:22)
[2021-02-24] MEDS: HALOPERIDOL 5 MG TABLET PO PRN (21:14)
[2021-02-24] MEDS: SIMVASTATIN 40 MG TABLET PO SCH (21:14)
[2021-02-24] MEDS: ZOLPIDEM TARTRATE 10 MG TABLET PO PRN (21:15)
[2021-02-24 22:09] LABS: GLUCOMETER DEV NAME(LOC) 3E.I 2; GLUCOSE,POINT OF CARE 326 MG/DL (70-110)
[2021-02-24 22:42] VITALS: BP 125/82
[2021-02-25 00:27] VITALS: BP 119/69
[2021-02-25] MEDS: LORazepam 2 MG TABLET PO PRN (00:27)
[2021-02-25 00:45] LABS: GLUCOMETER DEV NAME(LOC) 3E.I 2; GLUCOSE,POINT OF CARE 383 MG/DL (70-110)
[2021-02-25 05:34] LABS: GLUCOMETER DEV NAME(LOC) 3E.I 2; GLUCOSE,POINT OF CARE 277 MG/DL (70-110)
[2021-02-25] MEDS: MetFORMIN HCL 500 MG TABLET PO SCH ×2 (07:01→17:12)
[2021-02-25] MEDS: INSULIN LISPRO 100 UNITS/ML SQ PRN ×4 (07:04→21:09)
[2021-02-25] MEDS: BuPROPion HCL XL 150 MG ER TABLET PO SCH (08:30)
[2021-02-25] MEDS: LOSARTAN POTASSIUM 50 MG TABLET PO SCH (08:30)
[2021-02-25] MEDS: GABAPENTIN 400 MG CAPSULE PO SCH ×4 (08:30→21:05)
[2021-02-25] MEDS: OLANZapine 5 MG TABLET PO SCH ×2 (08:30→17:12)
[2021-02-25] MEDS: HYDROCHLOROTHIAZIDE 25 MG TABLET PO SCH (08:30)
[2021-02-25] MEDS: ASPIRIN 81 MG DR TABLET PO SCH (08:30)
[2021-02-25] MEDS: INSULIN GLARGINE,HUM.REC.ANLOG 100 UNITS/ML SQ SCH (08:35)
[2021-02-25 08:48] VITALS: BP 134/89
[2021-02-25 11:43] LABS: GLUCOMETER DEV NAME(LOC) 3E.I 2; GLUCOSE,POINT OF CARE 265 MG/DL (70-110)
[2021-02-25 16:22] VITALS: BP 127/77
[2021-02-25 17:22] LABS: GLUCOMETER DEV NAME(LOC) 3E.I 2; GLUCOSE,POINT OF CARE 333 MG/DL (70-110)
[2021-02-25 20:56] LABS: GLUCOMETER DEV NAME(LOC) 3E.I 2; GLUCOSE,POINT OF CARE 257 MG/DL (70-110)
[2021-02-25] MEDS: HALOPERIDOL 5 MG TABLET PO PRN (21:05)
[2021-02-25] MEDS: SIMVASTATIN 40 MG TABLET PO SCH (21:05)
[2021-02-25] MEDS: ZOLPIDEM TARTRATE 10 MG TABLET PO PRN (21:06)
[2021-02-25 21:21] VITALS: BP 131/76
[2021-02-25] MEDS: IBUPROFEN 400 MG TABLET PO PRN (21:21)
[2021-02-25 22:21] VITALS: BP 133/75
[2021-02-26] MEDS: LORazepam 2 MG TABLET PO PRN (01:34)
[2021-02-26 03:06] VITALS: BP 116/79
[2021-02-26] MEDS: MetFORMIN HCL 500 MG TABLET PO SCH ×2 (06:23→17:25)
[2021-02-26] MEDS: INSULIN LISPRO 100 UNITS/ML SQ PRN ×4 (06:32→21:13)
[2021-02-26 06:51] LABS: GLUCOMETER DEV NAME(LOC) 3E.I 2; GLUCOSE,POINT OF CARE 267 MG/DL (70-110)
[2021-02-26 08:52] VITALS: BP 143/80
[2021-02-26] MEDS: LOSARTAN POTASSIUM 50 MG TABLET PO SCH (08:55)
[2021-02-26] MEDS: BuPROPion HCL XL 150 MG ER TABLET PO SCH (08:55)
[2021-02-26] MEDS: IBUPROFEN 400 MG TABLET PO PRN ×2 (08:55→21:48)
[2021-02-26] MEDS: HYDROCHLOROTHIAZIDE 25 MG TABLET PO SCH (08:55)
[2021-02-26] MEDS: ASPIRIN 81 MG DR TABLET PO SCH (08:55)
[2021-02-26] MEDS: GABAPENTIN 400 MG CAPSULE PO SCH ×4 (08:55→21:11)
[2021-02-26] MEDS: OLANZapine 5 MG TABLET PO SCH ×2 (08:55→17:25)
[2021-02-26] MEDS: INSULIN GLARGINE,HUM.REC.ANLOG 100 UNITS/ML SQ SCH (09:02)
[2021-02-26 11:39] LABS: GLUCOMETER DEV NAME(LOC) 3E.I 2; GLUCOSE,POINT OF CARE 244 MG/DL (70-110)
[2021-02-26 16:16] VITALS: BP 121/70
[2021-02-26 17:22] LABS: GLUCOMETER DEV NAME(LOC) 3E.I 2; GLUCOSE,POINT OF CARE 305 MG/DL (70-110)
[2021-02-26] MEDS: HALOPERIDOL 5 MG TABLET PO PRN (19:30)
[2021-02-26 20:58] LABS: GLUCOMETER DEV NAME(LOC) 3E.I 2; GLUCOSE,POINT OF CARE 200 MG/DL (70-110)
[2021-02-26] MEDS: SIMVASTATIN 40 MG TABLET PO SCH (21:10)
[2021-02-26] MEDS: ZOLPIDEM TARTRATE 10 MG TABLET PO PRN (21:11)
[2021-02-26 21:48] VITALS: BP 131/77
[2021-02-26 22:48] VITALS: BP 128/74
[2021-02-27 05:15] LABS: GLUCOMETER DEV NAME(LOC) 3E.I 2; GLUCOSE,POINT OF CARE 162 MG/DL (70-110)
[2021-02-27] MEDS: MetFORMIN HCL 500 MG TABLET PO SCH (06:36)
[2021-02-27] MEDS: INSULIN LISPRO 100 UNITS/ML SQ PRN ×2 (06:39→11:49)
[2021-02-27 08:51] VITALS: BP 133/90
[2021-02-27 09:10] VITALS: BP 133/90
[2021-02-27] MEDS: ASPIRIN 81 MG DR TABLET PO SCH (09:10)
[2021-02-27] MEDS: LOSARTAN POTASSIUM 50 MG TABLET PO SCH (09:10)
[2021-02-27] MEDS: OLANZapine 5 MG TABLET PO SCH (09:10)
[2021-02-27] MEDS: GABAPENTIN 400 MG CAPSULE PO SCH ×2 (09:10→13:17)
[2021-02-27] MEDS: HYDROCHLOROTHIAZIDE 25 MG TABLET PO SCH (09:10)
[2021-02-27] MEDS: BuPROPion HCL XL 150 MG ER TABLET PO SCH (09:10)
[2021-02-27] MEDS: IBUPROFEN 400 MG TABLET PO PRN (09:11)
[2021-02-27] MEDS: INSULIN GLARGINE,HUM.REC.ANLOG 100 UNITS/ML SQ SCH (09:20)
[2021-02-27] MEDS ORDERED: BUPR-93 PO (10:44)
[2021-02-27] MEDS ORDERED: METF-960 PO (10:49)
[2021-02-27] MEDS ORDERED: OLAN5TAB52 PO (10:53)
[2021-02-27 11:56] LABS: GLUCOMETER DEV NAME(LOC) 3E.I 2; GLUCOSE,POINT OF CARE 192 MG/DL (70-110)
== END 2021-02-27 14:30 | disposition home or self-care (01) | DRG 753 ==
LOC: EMS 20:04 → 3EI 22:00
PROVIDERS: ADMIT Psychiatry & Neurology Psychiatry; ATTEND Psychiatry & Neurology Psychiatry
DX: F31.30 Bipolar disorder, current episode depressed, mild or moderate severity, unspecified (principal); R45.850 Homicidal ideations; R45.851 Suicidal ideations; Z20.822 Contact with and (suspected) exposure to COVID-19; G40.909 Epilepsy, unspecified, not intractable, without status epilepticus; E11.65 Type 2 diabetes mellitus with hyperglycemia; E78.00 Pure hypercholesterolemia, unspecified; G47.30 Sleep apnea, unspecified; G89.29 Other chronic pain; I10 Essential (primary) hypertension; J44.9 Chronic obstructive pulmonary disease, unspecified
CPT/HCPCS: 80048; 80053; 80061; 82962; 85025; 87081; 99285; G0480; J1815